=== PATIENT | male | born 1955 | race Asian ===

== ENCOUNTER 2017-08-18 21:23 | Emergency (ER) | payer OTHER ==
[2017-08-18 21:46] VITALS: BMI 26.3
--- NOTE | 2017-08-19 00:21 | PDOC ---
History of Present Illness - General History Source: Old Records Exam Limitations: Language Barrier - History of Present Illness Initial Comments: 08/19/17 00:35 The patient 61-year-old Pashto-speaking patient living [place] the [place], with a significant past medical history of HTN and diabetes, who presents to the ED with lower back pain that began at 5 PM today. Pts back pain is vascular until proven otherwise. Pt will get a Abdominal/Pelvis CT. <Janiya Kirk - Last Filed: 08/19/17 06:44> <Suman Shipman - Last Filed: 08/20/17 09:44> - General Chief Complaint: Pain Stated Complaint: BACK PAIN Past History <Janiya Kirk - Last Filed: 08/19/17 06:44> - Past Medical History CVA: Yes (Left sided weakness) Diabetes: Yes HTN: Yes Hypercholesterolemia: Yes - Immunization History Immunization Up to Date: Yes - Suicide/Smoking/Psychosocial Hx Smoking History: Never smoked Have you smoked in the past 12 months: No Information on smoking cessation initiated: No Hx Alcohol Use: No Drug/Substance Use Hx: No Substance Use Type: None <Suman Shipman - Last Filed: 08/20/17 09:44> - Past Medical History Allergies/Adverse Reactions: Allergies Allergy/AdvReac Type Severity Reaction Status Date / Time No Known Allergies Allergy Verified 08/18/17 21:43 Home Medications: Ambulatory Orders Atorvastatin Ca [Lipitor] 10 mg PO HS 06/11/16 Clopidogrel Bisulfate [Plavix -] 75 mg PO DAILY 06/11/16 Gabapentin [Neurontin -] 100 mg PO DAILY 06/11/16 Omeprazole 20 mg PO DAILY 06/11/16 Aspirin [ASA -] 81 mg PO DAILY 07/14/16 Folic Acid 1 mg PO DAILY 07/14/16 Glipizide Xl [Glucotrol Xl -] 10 mg PO BID 07/14/16 Metformin HCl [Glucophage] 1,000 mg PO BID 07/14/16 Acetaminophen [Tylenol] 650 mg PO PRN 08/02/16 Canagliflozin [Invokana] 300 mg PO DAILY 08/02/16 Loratadine [Claritin] 10 mg PO DAILY #20 tablet 08/02/16 Pioglitazone HCl [Actos] 30 mg PO DAILY 08/02/16 Ramipril 5 mg PO DAILY 08/02/16 Acetaminophen [Tylenol] 650 mg PO Q4H PRN #20 tablet 08/19/17 Review of Systems - Review of Systems Comments:: 08/19/17 00:35 GENERAL/CONSTITUTIONAL: No fever or chills. No weakness. HEAD, EYES, EARS, NOSE AND THROAT: No change in vision. No ear pain or discharge. No sore throat. CARDIOVASCULAR: No chest pain or shortness of breath. RESPIRATORY: No cough, wheezing, or hemoptysis. GASTROINTESTINAL: No nausea, vomiting, diarrhea or constipation. GENITOURINARY: No dysuria, frequency, or change in urination. MUSCULOSKELETAL: (+)Lower back pain. No joint swelling or pain. No neck pain. SKIN: No rash NEUROLOGIC: No headache, vertigo, loss of consciousness, or change in strength/ sensation. ENDOCRINE: No increased thirst. No abnormal weight change. HEMATOLOGIC/LYMPHATIC: No anemia, easy bleeding, or history of blood clots. ALLERGIC/IMMUNOLOGIC: No hives or skin allergy. <Janiya Kirk - Last Filed: 08/19/17 06:44> *Physical Exam - Vital Signs Last Vital Signs Temp Pulse Resp BP Pulse Ox 98.1 F 74 18 118/70 97 08/18/17 21:43 08/18/17 21:43 08/18/17 21:43 08/18/17 21:43 08/18/17 21:43 - Physical Exam Comments: 08/19/17 00:36 GENERAL: Awake, alert, and fully oriented, in no acute distress HEAD: No signs of trauma EYES: PERRLA, EOMI, sclera anicteric, conjunctiva clear ENT: Auricles normal inspection, hearing grossly normal, nares patent, oropharynx clear without exudates. Moist mucosa NECK: Normal ROM, supple, no lymphadenopathy, JVD, or masses LUNGS: Breath sounds equal, clear to auscultation bilaterally. No wheezes, and no crackles HEART: Regular rate and rhythm, normal S1 and S2, no murmurs, rubs or gallops ABDOMEN: Soft, nontender, normoactive bowel sounds. No guarding, no rebound. No masses EXTREMITIES: Normal range of motion, no edema. No clubbing or cyanosis. No cords, erythema, or tenderness NEUROLOGICAL: Cranial nerves II through XII grossly intact. SKIN: Warm, Dry, normal turgor, no rashes or lesions noted <Janiya Kirk - Last Filed: 08/19/17 06:44> - Vital Signs Last Vital Signs Temp Pulse Resp BP Pulse Ox 98.1 F 74 18 118/70 97 08/18/17 21:43 08/18/17 21:43 08/18/17 21:43 08/18/17 21:43 08/18/17 21:43 <Suman Shipman - Last Filed: 08/20/17 09:44> ED Treatment Course - LABORATORY CBC & Chemistry Diagram: 08/19/17 00:59 08/19/17 00:59 - RADIOLOGY Radiology Studies Ordered: 08/19/17 06:06 Abdomen/Pelvis CT was reviewed by Dr. Shipman and over-read by Radiology. Impression: Lung bases are clear mild dependent atelectasis. The visualized cardiac chambers are normal size and configuration. Normal liver, gallbladder, pancreas, spleen, adrenal glands and kidneys. The stomach and abdominal small and large bowel are normal. There is no aortic dissection or aneurysm. Normal single bilateral renal arteries. Patient celiac axis and SMA. There is no significant retroperitoneal lymphadenopathy. The pelvic small and large bowel are normal. The appendix is normal. The urinary bladder is normal. The prostate gland is mildly enlarged. No pelvic free fluid is identified. There is no significant pelvic lymphadenopathy. IMPRESSION: No acute pathology. Mild prostate enlargement. <Janiya Kirk - Last Filed: 08/19/17 06:44> - LABORATORY CBC & Chemistry Diagram: 08/19/17 00:59 08/19/17 00:59 <Suman Shipman - Last Filed: 08/20/17 09:44> Medical Decision Making - Medical Decision Making 08/19/17 06:44 Pt still needs urine. He will be discharged. <Janiya Kirk - Last Filed: 08/19/17 06:44> *DC/Admit/Observation/Transfer - Attestations Scribe Attestion: 08/19/17 00:36 Documentation prepared by Janiya Kirk, acting as medical physiologist for Suman Shipman MD. <Janiya Kirk - Last Filed: 08/19/17 06:44> - Attestations Physician Attestion: 08/19/17 00:21 I, Dr. Suman Shipman, attest that this document has been prepared under my direction and personally reviewed by me in its entirety. I further attest, that it accurately reflects all work, treatment, procedures and medical decision -making performed by me. <Suman Shipman - Last Filed: 08/20/17 09:44> Diagnosis at time of Disposition: Back pain Qualifiers: Back pain location: back pain in other location Chronicity: unspecified Qualified Code(s): M54.89 - Other dorsalgia - Discharge Dispostion Disposition: HOME Condition at time of disposition: Improved - Prescriptions Prescriptions: Acetaminophen [Tylenol] 650 mg PO Q4H PRN #20 tablet PRN Reason: Pain - Referrals Referrals: STAFF,NOT ON [Primary Care Provider] - - Patient Instructions Printed Discharge Instructions: Back Pain (Alternative Therapy), DI for Low Back Pain Additional Instructions: Please follow up with your doctor. Call back for your CT spine results at [phone] option 1 or [phone] Print Language: Pashto
[2017-08-19] MEDS ORDERED: ONDANSETRON 4 MG/2 ML VIAL IVPUSH ONE (00:30)
[2017-08-19] MEDS ORDERED: morphine CARPU-JECT 4 MG/1 ML DISP.SYRIN IVPUSH ONE (00:30)
[2017-08-19] MEDS ORDERED: morphine CARPU-JECT 2 MG/1 ML DISP.SYRIN ONE (00:53)
[2017-08-19] MEDS ORDERED: ONDANSETRON 4 MG/2 ML VIAL ONE (00:53)
[2017-08-19 01:15] LABS: BASOPHIL 0.8 % (0-2.0); EOSINOPHIL 2.9 % (0-4.5); MCH 29.5 pg (25.7-33.7); MCHC 33.7 g/dl (32.0-35.9); MEAN CELL VOLUME 87.5 fl (80-96); MEAN PLT VOLUME 8.2 fl (7.5-11.1); NEUTROPHILS 63.4 % (42.8-82.8); PLATELET COUNT 157 K/MM3 (134-434); RDW 13.2 % (11.9-15.9); WHITE BLOOD COUNT 5.2 K/mm3 (4.0-10.0)
[2017-08-19 01:29] LABS: INR 0.91 (0.82-1.09); PROTHROMBIN TIME (PATIENT) 10.3 SEC (9.98-11.88)
[2017-08-19 01:47] LABS: ALBUMIN 3.6 g/dl (3.4-5.0); ANION GAP 8 (8-16); BILIRUBIN,TOTAL 0.8 mg/dL (0.2-1.0); CALCIUM 8.3 mg/dL (8.5-10.1); CO2 26 mmol/L (21-32); CREATININE 0.8 mg/dL (0.7-1.3); GLUCOSE,RANDOM 217 mg/dL (74-106); SGOT/AST 15 U/L (15-37); SGPT/ALT 21 U/L (12-78); TOT PROT 6.8 g/dl (6.4-8.2)
[2017-08-19 01:48] LABS: ALK PHOS 23 U/L (45-117)
[2017-08-19 06:54] LABS: URINE APPEARANCE CLEAR; URINE BILIRUBIN NEGATIVE (NEGATIVE); URINE BLOOD NEGATIVE (NEGATIVE); URINE COLOR STRAW; URINE GLUCOSE (UA) 3+ (NEGATIVE); URINE KETONE NEGATIVE (NEGATIVE); URINE NITRITE NEGATIVE (NEGATIVE); URINE PROTEIN NEGATIVE (NEGATIVE); URINE UROBILINOGEN NEGATIVE mg/dL (0.2-1.0)
--- NOTE | 2017-08-19 09:07 | PDOC ---
*Physical Exam - Vital Signs Last Vital Signs Temp Pulse Resp BP Pulse Ox 98.8 F 78 18 120/72 100 08/19/17 07:55 08/19/17 07:55 08/19/17 07:55 08/19/17 07:55 08/19/17 07:55 ED Treatment Course - LABORATORY CBC & Chemistry Diagram: 08/19/17 00:59 08/19/17 00:59 - ADDITIONAL ORDERS Additional order review: Laboratory Results 08/19/17 08/19/17 08/19/17 05:55 00:59 00:59 PT with INR INR Sodium 137 Potassium 3.9 Chloride 103 Carbon Dioxide 26 Anion Gap 8 BUN 18 D Creatinine 0.8 D Creat Clearance w eGFR > 60 Random Glucose 217 H D Calcium 8.3 L Total Bilirubin 0.8 D AST 15 D ALT 21 Alkaline Phosphatase 23 L Total Protein 6.8 Albumin 3.6 Urine Color Straw Urine Appearance Clear Urine pH 6.0 Urine Protein Negative Urine Glucose (UA) 3+ H Urine Ketones Negative Urine Blood Negative Urine Nitrite Negative Urine Bilirubin Negative Urine Urobilinogen Negative Blood Type A POSITIVE Antibody Screen Negative 08/19/17 00:59 PT with INR 10.30 INR 0.91 Sodium Potassium Chloride Carbon Dioxide Anion Gap BUN Creatinine Creat Clearance w eGFR Random Glucose Calcium Total Bilirubin AST ALT Alkaline Phosphatase Total Protein Albumin Urine Color Urine Appearance Urine pH Urine Protein Urine Glucose (UA) Urine Ketones Urine Blood Urine Nitrite Urine Bilirubin Urine Urobilinogen Blood Type Antibody Screen 08/19/17 00:59 RBC 5.01 MCV 87.5 MCHC 33.7 RDW 13.2 MPV 8.2 Neutrophils % 63.4 Lymphocytes % 24.8 D Monocytes % 8.1 Eosinophils % 2.9 Basophils % 0.8 - Medications Given in the ED: ED Medications Discontinued Medications Generic Name Dose Route Start Last Admin Trade Name Freq PRN Reason Stop Dose Admin Morphine Sulfate 4 mg 08/19/17 00:30 08/19/17 01:04 Morphine Injection - IVPUSH 08/19/17 00:31 4 mg ONCE ONE Administration Ondansetron HCl 4 mg 08/19/17 00:30 08/19/17 01:05 Zofran Injection IVPUSH 08/19/17 00:31 4 mg ONCE ONE Administration Medical Decision Making - Medical Decision Making 08/19/17 09:02 Sign-out received from outgoing Emergency Physician Dr. Shipman Pt interviewed and examined Ancillary studies reviewed Case discussed in detail with oncoming Emergency Physician including history, physical exam and ancillary studies. CT abdomen and pelvis demonstrates no acute findings. CBC, BMP 08/19/17 00:59 08/19/17 00:59 CMP Sodium 137 mmol/L (136-145) 08/19/17 00:59 Potassium 3.9 mmol/L (3.5-5.1) 08/19/17 00:59 Chloride 103 mmol/L (98-107) 08/19/17 00:59 Carbon Dioxide 26 mmol/L (21-32) 08/19/17 00:59 Anion Gap 8 (8-16) 08/19/17 00:59 BUN 18 mg/dL (7-18) D 08/19/17 00:59 Creatinine 0.8 mg/dL (0.7-1.3) D 08/19/17 00:59 Creat Clearance w eGFR > 60 (>60) 08/19/17 00:59 Random Glucose 217 mg/dL (74-106) H D 08/19/17 00:59 Calcium 8.3 mg/dL (8.5-10.1) L 08/19/17 00:59 Total Bilirubin 0.8 mg/dL (0.2-1.0) D 08/19/17 00:59 AST 15 U/L (15-37) D 08/19/17 00:59 ALT 21 U/L (12-78) 08/19/17 00:59 Alkaline Phosphatase 23 U/L (45-117) L 08/19/17 00:59 Total Protein 6.8 g/dl (6.4-8.2) 08/19/17 00:59 Albumin 3.6 g/dl (3.4-5.0) 08/19/17 00:59 Urine Test Results Urine Color Straw 08/19/17 05:55 Urine Appearance Clear 08/19/17 05:55 Urine pH 6.0 (5.0-8.0) 08/19/17 05:55 Urine Protein Negative (NEGATIVE) 08/19/17 05:55 Urine Glucose (UA) 3+ (NEGATIVE) H 08/19/17 05:55 Urine Ketones Negative (NEGATIVE) 08/19/17 05:55 Urine Blood Negative (NEGATIVE) 08/19/17 05:55 Urine Nitrite Negative (NEGATIVE) 08/19/17 05:55 Urine Bilirubin Negative (NEGATIVE) 08/19/17 05:55 The patient reports to me that the back pain has resolved significantly. The CT scan demonstrates no acute findings. The CT was obtained overnight, but the reconstruction of the CT spine still is pending read. However, the patient and patient's family insists on going home as they have been here for > 11 hours. I stated that they can call back for the CT results or I will call them if there are any abnormal CT spine results. The patient also gave me his son's phone number, who is also a doctor. Dr. dooley [phone]. The patient is ambulatory and will follow up with his doctors. I discussed the physical exam findings, ancillary test results and final diagnoses with the patient. I answered all of the patient's questions. The patient was satisfied with the care received and felt comfortable with the discharge plan and treatment plan. The patient will call their primary care physician within 24 hours to arrange follow-up and will return to the Emergency Department with any new, persistant or worsening symptoms. *DC/Admit/Observation/Transfer Diagnosis at time of Disposition: Back pain Qualifiers: Back pain location: back pain in other location Chronicity: unspecified Qualified Code(s): M54.89 - Other dorsalgia - Discharge Dispostion Disposition: HOME Condition at time of disposition: Improved Admit: No - Prescriptions Prescriptions: Acetaminophen [Tylenol] 650 mg PO Q4H PRN #20 tablet PRN Reason: Pain - Referrals Referrals: STAFF,NOT ON [Primary Care Provider] - - Patient Instructions Printed Discharge Instructions: DI for Low Back Pain, Back Pain (Alternative Therapy) Additional Instructions: Please follow up with your doctor. Call back for your CT spine results at [phone] option 1 or [phone] Print Language: Uzbek - Post Discharge Activity
[2017-08-19 09:40] VITALS: BP 125/72; PULSE 69; TEMP 98.2
[2017-08-19 12:13] LABS: URINE LEUK ESTERASE Negative (NEGATIVE)
== END 2017-08-19 09:40 | disposition home or self-care (01) ==
LOC: JER 21:23
PROC: 3E033NZ Introduction of Analgesics, Hypnotics, Sedatives into Peripheral Vein, Percutaneous Approach (ICD-10-PCS; principal; 2017-08-18)
PROC: 3E033GC Introduction of Other Therapeutic Substance into Peripheral Vein, Percutaneous Approach (ICD-10-PCS; 2017-08-18)
DX: M54.5 Low back pain (principal); I10 Essential (primary) hypertension; E11.9 Type 2 diabetes mellitus without complications; Z79.84 Long term (current) use of oral hypoglycemic drugs; E78.00 Pure hypercholesterolemia, unspecified; I69.854 Hemiplegia and hemiparesis following other cerebrovascular disease affecting left non-dominant side
CPT/HCPCS: 36415; 72131-TC; 74174-TC; 80053; 81003; 85025; 85610; 86850; 86900; 86901; 99283-25

== ENCOUNTER 2018-10-10 08:13 | Emergency (ER) | payer OTHER ==
[2018-10-10 08:30] VITALS: TEMP 98; BMI 26.3
[2018-10-10] MEDS ORDERED: LACTATED RINGERS SOLUTION 1,000 ML IV STA (08:38)
--- NOTE | 2018-10-10 08:38 | PDOC ---
History of Present Illness - General History Source: Patient, Family, Herpetologist Used Exam Limitations: No Limitations - History of Present Illness Initial Comments: 10/10/18 10:50 Mr. Goetz is a 63-year-old Macedonian speaking male with a past medical history significant for HTN, HLD, IDDM, and CVA (with residual left-sided weakness) presents to the emergency department via EMS with throat and abdominal pain. The history was obtained using an [employer] radio communications mechanician phone #[phone]. The patient reports he was at [employer] when he smelled the odor of paint that traveled down the throat to the abdomen, following the episode, the patient developed pain to the throat and the mid-abdomen/umbilical region. The patient reports the abdominal pain tight and twisting in quality, with a 7/10 severity, denies taking any medication to alleviate the pain or eating any food that precipitated the pain. The patient reports associated symptoms of nausea, shortness of breath, mild chest pain, light subjective fever, and rhinorrhea. The patient reports a similar incident a day prior when he was sitting in the car when he started the smell pain, during the episode the patient reports having eye pain and a headache. The reports during both incidents, the was unable to detect the similar smell. Denies vomiting, diarrhea, constipation, changes to bowel habits, worsening urinary symptoms. Denies new weakness, numbness, tingling. Denies sick contact, recent travel or illness. Denies congestions. Allergies: NKDA Social history: No past or present use of tobacco, alcohol or recreational drugs. Surgical history: None reported PCP: Nabeel Mosquera MD <Destiny Shane - Last Filed: 10/10/18 10:50> - General History Source: Patient, Family Exam Limitations: No Limitations <Denae Brantley - Last Filed: 10/10/18 13:23> - General Chief Complaint: Pain Stated Complaint: ABD PAIN Time Seen by Provider: 10/10/18 08:32 Past History <Destiny Shane - Last Filed: 10/10/18 10:50> - Past Medical History CVA: Yes (Left sided weakness) COPD: No Diabetes: Yes HTN: Yes Hypercholesterolemia: Yes - Immunization History Immunization Up to Date: Yes - Suicide/Smoking/Psychosocial Hx Smoking History: Never smoked Have you smoked in the past 12 months: No Information on smoking cessation initiated: No Hx Alcohol Use: No Drug/Substance Use Hx: No Substance Use Type: None <Denae Brantley - Last Filed: 10/10/18 13:23> - Past Medical History Allergies/Adverse Reactions: Allergies Allergy/AdvReac Type Severity Reaction Status Date / Time No Known Allergies Allergy Verified 06/21/18 06:38 Home Medications: Ambulatory Orders Atorvastatin Ca [Lipitor] 10 mg PO HS 06/11/16 Clopidogrel Bisulfate [Plavix -] 75 mg PO DAILY 06/11/16 Gabapentin [Neurontin -] 100 mg PO DAILY 06/11/16 Aspirin [ASA -] 81 mg PO DAILY 07/14/16 Folic Acid 1 mg PO DAILY 07/14/16 Glipizide Xl [Glucotrol Xl -] 10 mg PO BID 07/14/16 Metformin HCl [Glucophage] 1,000 mg PO BID 07/14/16 Acetaminophen [Tylenol] 650 mg PO PRN 08/02/16 Pioglitazone HCl [Actos] 30 mg PO DAILY 08/02/16 Ramipril 5 mg PO DAILY 08/02/16 Empagliflozin [Jardiance] 25 mg PO DAILY 10/10/18 Magnesium Oxide [Mag-Ox -] 400 mg PO DAILY 10/10/18 Sitagliptin Phosphate [Januvia] 100 mg PO DAILY 10/10/18 Review of Systems - Review of Systems Able to Perform ROS?: Yes Comments:: 10/10/18 10:51 GENERAL/CONSTITUTIONAL: +Light sub-fever. No chills. No weakness. no sweats. HEAD, EYES, EARS, NOSE AND THROAT: +Throat pain, runny nose. +Eye pain a day prior, since resolved. No change in vision or hearing. No ear pain or discharge. No mouth pain. No difficulty swallowing. No congestion. CARDIOVASCULAR: +Mild chest pain. No palpitations, syncope or edema. RESPIRATORY: +SOB. No cough, wheezing, or hemoptysis. GASTROINTESTINAL +Umbilical abdominal pain w/ nausea. No vomiting. No diarrhea or constipation. No bloody stools. GENITOURINARY: No hematuria, dysuria, frequency, urgency or other changes. MUSCULOSKELETAL: No joint or muscle swelling or pain. No neck or back pain. SKIN: No rash or changes in skin color or lesions. NEUROLOGIC: +Headache a day prior, since resolved. No vertigo, loss of consciousness, or change in strength/sensation. No gait instability. HEMATOLOGIC/LYMPHATIC: No anemia, easy bruising/bleeding, or history of blood clots. ALLERGIC/IMMUNOLOGIC: No allergies All other systems reviewed and negative, or as documented in HPI. <Destiny Shane - Last Filed: 10/10/18 10:50> *Physical Exam - Vital Signs Last Vital Signs Temp Pulse Resp BP Pulse Ox 98.0 F 81 18 141/82 97 10/10/18 08:26 10/10/18 08:26 10/10/18 08:26 10/10/18 08:26 10/10/18 08:26 - Physical Exam Comments: 10/10/18 10:51 General: awake and alert, NAD. HEENT: NCAT, PERRL, EOMI, clear conjunctiva, anicteric, moist mucus membranes, clear oropharynx, no oral lesions.. No tonsillar hypertrophy Neck: neck supple, FROM Resp: CTAB, normal and even respirations, no respiratory distress CVS: RRR, no murmurs, 2+ peripheral pulses throughout, no peripheral edema Abdomen: soft, nondistended, +periumbilical TTP. no rebound or guarding. Back: nontender, normal inspection and ROM. no CVAT MSK: no edema, DELGADO x4, ROM intact. No clubbing or cyanosis. normal bulk and tone. Extremities: no calf tenderness Neuro: alert, oriented appropriately; no focal neurologic deficits Skin: warm and well perfused, cap refill <2 sec, normal color <Destiny Shane - Last Filed: 10/10/18 10:50> - Vital Signs Last Vital Signs Temp Pulse Resp BP Pulse Ox 98.0 F 81 18 141/82 97 10/10/18 08:26 10/10/18 08:26 10/10/18 08:26 10/10/18 08:26 10/10/18 08:26 <Denae Brantley - Last Filed: 10/10/18 13:23> Moderate Sedation - Procedure Monitoring Vital Signs: Procedure Monitoring Vital Signs Temperature 98.0 F 10/10/18 08:26 Pulse Rate 81 10/10/18 08:26 Respiratory Rate 18 10/10/18 08:26 Blood Pressure 141/82 10/10/18 08:26 O2 Sat by Pulse Oximetry (%) 97 10/10/18 08:26 <Destiny Shane - Last Filed: 10/10/18 10:50> - Procedure Monitoring Vital Signs: Procedure Monitoring Vital Signs Temperature 98.0 F 10/10/18 08:26 Pulse Rate 81 10/10/18 08:26 Respiratory Rate 18 10/10/18 08:26 Blood Pressure 141/82 10/10/18 08:26 O2 Sat by Pulse Oximetry (%) 97 10/10/18 08:26 <Denae Brantleythelma - Last Filed: 10/10/18 13:23> ED Treatment Course - LABORATORY CBC & Chemistry Diagram: 10/10/18 08:55 10/10/18 08:55 - ADDITIONAL ORDERS Additional order review: Laboratory Results 10/10/18 10/10/18 10:10 08:55 Sodium 137 Potassium 4.1 Chloride 101 Carbon Dioxide 24 Anion Gap 11 BUN 11 Creatinine 1.0 Creat Clearance w eGFR > 60 Random Glucose 343 H* Calcium 8.3 L Total Bilirubin 0.5 AST 16 ALT 19 Alkaline Phosphatase 28 L Troponin I < 0.02 Total Protein 6.6 Albumin 3.4 Lipase 152 Urine Color Straw Urine Appearance Clear Urine pH 7.0 Ur Specific [place] 1.008 L Urine Protein Negative Urine Glucose (UA) 3+ H Urine Ketones Negative Urine Blood Negative Urine Nitrite Negative Urine Bilirubin Negative Urine Urobilinogen Negative Ur Leukocyte Esterase Negative 10/10/18 08:55 RBC 4.96 MCV 86.5 MCHC 32.7 RDW 13.2 MPV 8.2 Neutrophils % 65.4 Lymphocytes % 23.5 Monocytes % 7.0 Eosinophils % 3.3 Basophils % 0.8 - Medications Given in the ED: ED Medications Discontinued Medications Generic Name Dose Route Start Last Admin Trade Name Freq PRN Reason Stop Dose Admin Acetaminophen 650 mg 10/10/18 09:57 10/10/18 10:24 Tylenol - PO 10/10/18 09:58 650 mg ONCE ONE Administration Lactated Ringer's 1,000 mls @ 1,000 mls/hr 10/10/18 08:38 10/10/18 08:57 Lactated Ringers Solution IV 10/10/18 09:37 1,000 mls/hr ONCE STA Administration <Destiny Shane - Last Filed: 10/10/18 10:50> - LABORATORY CBC & Chemistry Diagram: 10/10/18 08:55 10/10/18 08:55 <Denae Brantley - Last Filed: 10/10/18 13:23> Medical Decision Making - Medical Decision Making 10/10/18 10:51 Herpetologist # for Macedonian, #[id number] <Destiny Shane - Last Filed: 10/10/18 10:50> - Medical Decision Making 10/10/18 10:25 See HPI for details Vital signs reviewed, wnl. Prior notes reviewed, including admissions, discharges and consultations. laboratory results and imaging reviewed, basic labs and lytes wnl, notable for elevated glucose 343, also known diabetic. normal LFTs and lipase Cardiac panel_neg trop EKG normal sinus rhythm, no interval abnormalities, narrow QRS, ST and T wave segments and morphology normal. Nonspecific T wave abnormalities CT head to r/o mass vs CVA CT head neg for acute pathology, old CVA noted, volume loss; CT a/p unremarkable , large prostate but otherwise wnl. strep and influenza test neg ED course: given fluids and tylenol for analgesia. abdomen soft, mild periumbilical tenderness. feels improved and eager for discharge, tolerated PO intake w/o difficulty, hydrated and nontoxic appearing. repeat fingerstick also normalized with fluids. does not appear dehydrated or in dka. Dispo: I discussed the physical exam findings, ancillary test results and final diagnoses with the patient. I answered all of the patient's questions. The patient was satisfied with the care received and felt comfortable with the discharge plan and treatment plan. The patient will return to the Emergency Department with any new, persistent or worsening symptoms. 10/10/18 13:18 10/10/18 13:19 10/10/18 13:19 10/10/18 13:22 10/10/18 13:23 <Denae Brantley - Last Filed: 10/10/18 13:23> *DC/Admit/Observation/Transfer - Attestations Scribe Attestion: 10/10/18 10:52 Documentation prepared by Destiny Shane, acting as medical cash poster for Denae Brantley MD. <Destiny Shane - Last Filed: 10/10/18 10:50> - Discharge Dispostion Decision to Admit order: No - Attestations Physician Attestion: 10/10/18 10:25 I, Denae Brantley MD, attest that this document has been prepared under my direction and personally reviewed by me in its entirety. I further attest, that it accurately reflects all work, treatment, procedures and medical decision -making performed by me. <Denae Brantley - Last Filed: 10/10/18 13:23> Diagnosis at time of Disposition: Abdominal pain, Throat pain - Discharge Dispostion Disposition: HOME Condition at time of disposition: Improved - Referrals Referrals: Nabeel Lozoya MD [Primary Care Provider] - - Patient Instructions Printed Discharge Instructions: DI for Abdominal Pain-Adult, DI for Viral Pharyngitis Additional Instructions: your blood tests were negative for abnormalities flu test negative strep negative CT scans with old stroke, no abdominal pathology follow up with your primary doctor for management stay well hydrated, rest well and return if worsening symptoms like inability to tolerate oral intake, dehydration, fever, worse pain, bloody stools or vomiting or other concerning findings. information has been provided and translated in Macedonian - Post Discharge Activity
[2018-10-10 09:22] LABS: BASO % 0.8 % (0-2.0); EOS % 3.3 % (0-4.5); HEMATOCRIT 42.9 % (35.4-49); LYMPH % 23.5 % (8-40); MCH 28.3 pg (25.7-33.7); MCHC 32.7 g/dl (32.0-35.9); MEAN CELL VOLUME 86.5 fl (80-96); MEAN PLT VOLUME 8.2 fl (7.5-11.1); NEUT % 65.4 % (42.8-82.8); PLATELET COUNT 165 K/MM3 (134-434); RBC 4.96 M/mm3 (4.00-5.60); RDW 13.2 % (11.9-15.9); WHITE BLOOD COUNT 4.5 K/mm3 (4.0-10.0)
[2018-10-10] MEDS ORDERED: ACETAMINOPHEN 325 MG TABLET (FP) PO ONE (09:57)
[2018-10-10 10:00] LABS: ALBUMIN 3.4 g/dl (3.4-5.0); ALK PHOS 28 U/L (45-117); ANION GAP 11 MMOL/L (8-16); BILIRUBIN,TOTAL 0.5 mg/dL (0.2-1); BLOOD UREA NITROGEN 11 mg/dL (7-18); CALCIUM 8.3 mg/dL (8.5-10.1); CHLORIDE 101 mmol/L (98-107); CO2 24 mmol/L (21-32); LIPASE 152 U/L (73-393); POTASSIUM 4.1 mmol/L (3.5-5.1); SGOT/AST 16 U/L (15-37); SGPT/ALT 19 U/L (13-61); SODIUM 137 mmol/L (136-145); TOT PROT 6.6 g/dl (6.4-8.2)
[2018-10-10] MEDS ORDERED: ACETAMINOPHEN 325 MG TABLET (FP) ONE (10:09)
[2018-10-10 10:19] LABS: GLUCOSE,RANDOM 343 mg/dL (74-106)
[2018-10-10 10:25] LABS: URINE APPEARANCE CLEAR; URINE BILIRUBIN NEGATIVE (<2.0 mg/dL); URINE COLOR STRAW; URINE GLUCOSE (UA) 3+ (NEGATIVE); URINE KETONE NEGATIVE (NEGATIVE); URINE LEUK ESTERASE NEGATIVE (NEGATIVE); URINE NITRITE NEGATIVE (NEGATIVE); URINE PROTEIN NEGATIVE (NEGATIVE); URINE UROBILINOGEN NEGATIVE mg/dL (0.2-1.0)
[2018-10-10 13:28] VITALS: BP 121/66; PULSE 68
--- NOTE | 2018-10-10 15:47 | EKG ---
Test Reason : Blood Pressure : / mmHG Vent. Rate : 067 BPM Atrial Rate : 067 BPM P-R Int : 160 ms QRS Dur : 094 ms QT Int : 420 ms P-R-T Axes : 046 001 031 degrees QTc Int : 443 ms NORMAL SINUS RHYTHM NORMAL ECG WHEN COMPARED WITH ECG OF 11-JUN-2016 07:53, NO SIGNIFICANT CHANGE WAS FOUND Confirmed by CORNELIUS AMAYA MD ([id number]) on 10/10/2018 3:46:49 PM Referred By: Confirmed By:CORNELIUS AMAYA MD
== END 2018-10-10 13:34 | disposition home or self-care (01) ==
LOC: JER 08:13
PROC: 3E0337Z Introduction of Electrolytic and Water Balance Substance into Peripheral Vein, Percutaneous Approach (ICD-10-PCS; principal; 2018-10-10)
DX: R07.0 Pain in throat (principal); I10 Essential (primary) hypertension; E11.9 Type 2 diabetes mellitus without complications; Z79.84 Long term (current) use of oral hypoglycemic drugs; E78.00 Pure hypercholesterolemia, unspecified; I69.854 Hemiplegia and hemiparesis following other cerebrovascular disease affecting left non-dominant side
CPT/HCPCS: 36415; 70450-TC; 74177-TC; 80053; 81003; 82962; 83690; 84484; 85025; 87070; 87077; 87804; 87880; 93005; 93010; 96360; 99284-25

== ENCOUNTER 2019-01-31 17:50 | Emergency (ER) | payer OTHER ==
--- NOTE | 2019-01-31 17:56 | PDOC ---
History of Present Illness - General Stated Complaint: ABDOMINAL PAIN Time Seen by Provider: 01/31/19 17:56 - History of Present Illness Initial Comments: 01/31/19 17:56 Mr. Goetz is a 63 yo male w/ pmh of HTN, HLD, IDDM, CVA (residual left-sided weakness) who presents for evaluation of 2-3 hour history of midline abdominal pain. Patient reports he was previously in his normal state of health until 2 hours before presentation when he began to experience the pain. He additionally had a 1 time episode of vomiting during which he vomited up all food he had eaten. Denies any other symptoms - last BM this morning was reportedly normal. Patient denies other symptoms other than pain at this time. The patient denies chest pain, shortness of breath, headache and dizziness. Denies fever, chills, diarrhea and constipation. Denies dysuria, frequency, urgency and hematuria. Allergies: NKDA Surgical history: None reported PCP: Nabeel Mosquera Past History - Past Medical History Allergies/Adverse Reactions: Allergies Allergy/AdvReac Type Severity Reaction Status Date / Time No Known Allergies Allergy Verified 06/21/18 06:38 Home Medications: Ambulatory Orders Atorvastatin Ca [Lipitor] 10 mg PO HS 06/11/16 Clopidogrel Bisulfate [Plavix -] 75 mg PO DAILY 06/11/16 Gabapentin [Neurontin -] 100 mg PO DAILY 06/11/16 Aspirin [ASA -] 81 mg PO DAILY 07/14/16 Folic Acid 1 mg PO DAILY 07/14/16 Glipizide Xl [Glucotrol Xl -] 10 mg PO BID 07/14/16 Metformin HCl [Glucophage] 1,000 mg PO BID 07/14/16 Acetaminophen [Tylenol] 650 mg PO PRN 08/02/16 Pioglitazone HCl [Actos] 30 mg PO DAILY 08/02/16 Ramipril 5 mg PO DAILY 08/02/16 Empagliflozin [Jardiance] 25 mg PO DAILY 10/10/18 Magnesium Oxide [Mag-Ox -] 400 mg PO DAILY 10/10/18 Sitagliptin Phosphate [Januvia] 100 mg PO DAILY 10/10/18 CVA: Yes (Left sided weakness) COPD: No Diabetes: Yes HTN: Yes Hypercholesterolemia: Yes - Immunization History Immunization Up to Date: Yes - Suicide/Smoking/Psychosocial Hx Smoking History: Never smoked Have you smoked in the past 12 months: No Hx Alcohol Use: No Drug/Substance Use Hx: No Substance Use Type: None Review of Systems - Review of Systems Comments:: 01/31/19 17:56 GENERAL/CONSTITUTIONAL: No fever or chills. No weakness. HEAD, EYES, EARS, NOSE AND THROAT: No change in vision. No ear pain or discharge. No sore throat. CARDIOVASCULAR: No chest pain or shortness of breath RESPIRATORY: No cough, wheezing, or hemoptysis. GASTROINTESTINAL: +N/V/abdominal pain as described. No diarrhea or constipation. GENITOURINARY: No dysuria, frequency, or change in urination. MUSCULOSKELETAL: No joint or muscle swelling or pain. No neck or back pain. SKIN: No rash NEUROLOGIC: No headache, vertigo, loss of consciousness, or change in strength/ sensation. ENDOCRINE: No increased thirst. No abnormal weight change HEMATOLOGIC/LYMPHATIC: No anemia, easy bleeding, or history of blood clots. ALLERGIC/IMMUNOLOGIC: No hives or skin allergy. *Physical Exam - Physical Exam Comments: 01/31/19 17:56 GENERAL: Awake, alert, and fully oriented, in no acute distress HEAD: No signs of trauma, normocephalic, atraumatic EYES: PERRLA, EOMI, sclera anicteric, conjunctiva clear ENT: Auricles normal inspection, hearing grossly normal, nares patent, oropharynx clear without exudates. Moist mucosa NECK: Normal ROM, supple, no lymphadenopathy, JVD, or masses LUNGS: No distress, speaks full sentences, clear to auscultation bilaterally HEART: Regular rate and rhythm, normal S1 and S2, no murmurs, rubs or gallops, peripheral pulses normal and equal bilaterally. ABDOMEN: +Impressive Abdominal TTP diffusely. Soft, normoactive bowel sounds. No guarding, no rebound. No masses EXTREMITIES: Normal inspection, Normal range of motion, no edema. No clubbing or cyanosis. NEUROLOGICAL: Cranial nerves II through XII grossly intact. Normal speech, normal gait, no focal sensorimotor deficits SKIN: Warm, Dry, normal turgor, no rashes or lesions noted. ED Treatment Course - LABORATORY CBC & Chemistry Diagram: 01/31/19 18:41 01/31/19 18:41 Medical Decision Making - Medical Decision Making 01/31/19 21:13 Mr. Goetz is a 63 yo male w/ pmh as described who presents for evaluation of symptoms concerning for dissection vs. ischemic colitis vs. gastritis. Patient evaluated with labs as below as patient extremely tender upon presentation raising concern that surgery may be required. Patient given IV tylenol, zofran, and morphine as well as fluids for symptomatic relief. Patient evaluated with Chest / abdomen CTA with no acute findings. Patient reporting symptoms completely resolved following this treatment and requesting water. Patient remains asymptomatic - currently pending PO challenge and vitals check. 01/31/19 22:46 Patient vitals normalized. Patient passed PO trial. Discharging patient to home with strict return precautions. Laboratory Results - last 24 hr 01/31/19 01/31/19 01/31/19 18:00 18:24 18:41 WBC 11.8 H RBC 5.19 Hgb 15.4 Hct 45.8 MCV 88.1 MCH 29.6 MCHC 33.6 RDW 13.8 Plt Count 154 MPV 8.2 Absolute Neuts (auto) 10.3 H Neutrophils % 87.9 H D Lymphocytes % 5.7 L D Monocytes % 4.6 Eosinophils % 0.6 D Basophils % 1.2 Nucleated RBC % 0 PT with INR INR PTT (Actin FS) VBG pH POC VBG pCO2 POC VBG pO2 VBG HCO3 VBG O2 Sat (Ronny) VBG Base Excess Sodium Potassium Chloride Carbon Dioxide Anion Gap BUN Creatinine Creat Clearance w eGFR POC Glucometer 175 Random Glucose Lactic Acid Calcium Magnesium Total Bilirubin AST ALT Alkaline Phosphatase Creatine Kinase Troponin I Total Protein Albumin Lipase Urine Color Urine Appearance Urine pH Ur Specific Drury Urine Protein Urine Glucose (UA) Urine Ketones Urine Blood Urine Nitrite Urine Bilirubin Urine Urobilinogen Ur Leukocyte Esterase Stool Occult Blood Acetone, Qual Anti-A Titer Cancelled Blood Type Cancelled Antibody Screen Cancelled 01/31/19 01/31/19 01/31/19 18:41 18:41 18:41 WBC RBC Hgb Hct MCV MCH MCHC RDW Plt Count MPV Absolute Neuts (auto) Neutrophils % Lymphocytes % Monocytes % Eosinophils % Basophils % Nucleated RBC % PT with INR 11.70 INR 0.99 PTT (Actin FS) 29.8 VBG pH 7.44 H POC VBG pCO2 38.3 L POC VBG pO2 64.4 H VBG HCO3 25.7 VBG O2 Sat (Ronny) 92.2 H VBG Base Excess 2.1 H Sodium 141 Potassium 3.3 L Chloride 104 Carbon Dioxide 25 Anion Gap 13 BUN 14 Creatinine 1.0 Creat Clearance w eGFR 74.99 POC Glucometer Random Glucose 146 H Lactic Acid Calcium 8.8 Magnesium 1.8 Total Bilirubin 0.7 AST 20 ALT 23 Alkaline Phosphatase 26 L Creatine Kinase 115 Troponin I < 0.02 Total Protein 7.4 Albumin 4.0 Lipase 169 Urine Color Urine Appearance Urine pH Ur Specific Drury Urine Protein Urine Glucose (UA) Urine Ketones Urine Blood Urine Nitrite Urine Bilirubin Urine Urobilinogen Ur Leukocyte Esterase Stool Occult Blood Acetone, Qual Anti-A Titer Blood Type Antibody Screen 01/31/19 01/31/19 01/31/19 18:41 18:41 18:43 WBC RBC Hgb Hct MCV MCH MCHC RDW Plt Count MPV Absolute Neuts (auto) Neutrophils % Lymphocytes % Monocytes % Eosinophils % Basophils % Nucleated RBC % PT with INR INR PTT (Actin FS) VBG pH POC VBG pCO2 POC VBG pO2 VBG HCO3 VBG O2 Sat (Ronny) VBG Base Excess Sodium Potassium Chloride Carbon Dioxide Anion Gap BUN Creatinine Creat Clearance w eGFR POC Glucometer Random Glucose Lactic Acid 1.2 Calcium Magnesium Total Bilirubin AST ALT Alkaline Phosphatase Creatine Kinase Troponin I Total Protein Albumin Lipase Urine Color Urine Appearance Urine pH Ur Specific Drury Urine Protein Urine Glucose (UA) Urine Ketones Urine Blood Urine Nitrite Urine Bilirubin Urine Urobilinogen Ur Leukocyte Esterase Stool Occult Blood Acetone, Qual Negative Anti-A Titer Blood Type A POSITIVE Antibody Screen Negative 01/31/19 01/31/19 18:53 20:26 WBC RBC Hgb Hct MCV MCH MCHC RDW Plt Count MPV Absolute Neuts (auto) Neutrophils % Lymphocytes % Monocytes % Eosinophils % Basophils % Nucleated RBC % PT with INR INR PTT (Actin FS) VBG pH POC VBG pCO2 POC VBG pO2 VBG HCO3 VBG O2 Sat (Ronny) VBG Base Excess Sodium Potassium Chloride Carbon Dioxide Anion Gap BUN Creatinine Creat Clearance w eGFR POC Glucometer Random Glucose Lactic Acid Calcium Magnesium Total Bilirubin AST ALT Alkaline Phosphatase Creatine Kinase Troponin I Total Protein Albumin Lipase Urine Color Yellow Urine Appearance Clear Urine pH 8.5 H D Ur Specific Drury 1.023 Urine Protein Negative Urine Glucose (UA) 3+ H Urine Ketones Negative Urine Blood Negative Urine Nitrite Negative Urine Bilirubin Negative Urine Urobilinogen 0.2 Ur Leukocyte Esterase Negative Stool Occult Blood Negative Acetone, Qual Anti-A Titer Blood Type Antibody Screen *DC/Admit/Observation/Transfer Diagnosis at time of Disposition: Abdominal pain Qualifiers: Abdominal location: unspecified location Qualified Code(s): R10.9 - Unspecified abdominal pain - Discharge Dispostion Disposition: HOME Decision to Admit order: Yes - Referrals Referrals: Nabeel Lozoya MD [Non Staff, Medical] - - Patient Instructions Printed Discharge Instructions: DI for Abdominal Pain-Adult Additional Instructions: You were evaluated today in the ER for your abdominal pain. We performed CT angiography scans of your chest and abdomen with no concerning findings. All laboratory evaluation was normal and your symptoms improved after we gave you pain medication. Please follow-up with your primary care provider tomorrow for further evaluation. Return to ER if any return of symptoms, fever, chills, or other concerning symptoms. Oneul ftvb-kkrnnbn-htsd bogbu tongjeung-e daehan pyeong-galeul bad-assseubnida. geomsa gyeolgwawa racwzblpk-uuea-i gaseum faizan bogbuui CT hyeolgwan joyeongsul geomsaleul suhaenghaessseubnida. modeun silheomsil pyeong-ganeun jeongsang- ieossgo jintongjeleul marshall hue jeungsang-i hojeondoeeossseubnida. naeil-ui pyeong -galeul wihae juchiuiwa husog jochileul chwihasibsio. silvia carrera ohan ttoneun gita jeungsang-e. - Post Discharge Activity
[2019-01-31 18:31] VITALS: BMI 25.8
[2019-01-31] MEDS ORDERED: ONDANSETRON 4 MG/2 ML VIAL IVPUSH ONE (18:42)
[2019-01-31] MEDS ORDERED: SODIUM CHLORIDE 0.9% 1000 ML INFUS.BAG IV ONE (18:42)
[2019-01-31] MEDS ORDERED: ONDANSETRON 4 MG/2 ML VIAL ONE (18:43)
[2019-01-31] MEDS ORDERED: morphine CARPU-JECT 4 MG/1 ML DISP.SYRIN IVPUSH ONE (18:43)
[2019-01-31] MEDS ORDERED: morphine SULFATE 4 MG/ML VIAL ONE (18:43)
[2019-01-31] MEDS ORDERED: LACTATED RINGERS SOLUTION 1000 ML INFUS.BAG IV ONE (18:46)
--- NOTE | 2019-01-31 18:50 | PDOC ---
Attending Attestation - HPI HPI: 01/31/19 19:09 The patient is a 63 YOM with a PMH of HTN, HLD, IDDM, and CVA (residual left- sided weakness) who presents to the ED with left lower quadrant abdominal pain today. Patient states the left lower quadrant pain radiates to the back and is associated with nausea. Patient reports similar symptoms 2-3 years ago, but cannot recall what the diagnose was then. Patient had a bowel movement today. The patient denies chest pain, shortness of breath, headache and dizziness. Denies fever, chills, vomit, diarrhea and constipation. Denies dysuria, frequency, urgency and hematuria. Allergies: NKA Past surgical history: None reported. Social history: No reported alcohol, drug or cigarette use. - Physicial Exam PE: 01/31/19 19:10 ADULT PHYSICAL EXAM Constitutional: Awake, alert, oriented. No acute distress. Eyes: PERRL. EOMI. Conjunctivae are not pale. ENT: Mucous membranes are moist and intact. Posterior pharynx without exudates or erythema. Uvula midline. Neck: Supple. Full ROM. No lymphadenopathy. Cardiovascular: Regular rate. Regular rhythm. S1, S2 regular. Distal pulses are 2+ and symmetric. Pulmonary/Chest: No evidence of respiratory distress. Clear to auscultation bilaterally No wheezing, rales or rhonchi. Abdominal: Soft and non-distended. (+) Acutely tender with rebound and guarding. Back: No CVA tenderness. Musculoskeletal: No edema. No cyanosis. No clubbing. Full range of motion in all extremities. Nocalf tenderness. Radial/pedal pulses are intact and 2+ bilaterally Skin: Skin is warm and dry. No petechiae. No purpura. Neurological: Alert and oriented to person, place, and time. Cranial nerves II -XII are grossly intact. Normal speech. Strength is grossly symmetric. No sensory deficits. Psychiatric: Good eye contact. Normal interaction, affect and behavior. <Halie Tatum - Last Filed: 01/31/19 19:09> - Resident Resident Name: Pablo Winter - ED Attending Attestation I have performed the following: I have examined & evaluated the patient, The case was reviewed & discussed with the resident, I agree w/resident's findings & plan, Exceptions are as noted - Medical Decision Making 01/31/19 18:50 I, Dr. Gerri Wiggins, DO, attest that this document has been prepared under my direction and personally reviewed by me in its entirety. I further attest, that it accurately reflects all work, treatment, procedures and medical decision -making performed by me. 01/31/19 19:14 a/p: 63yo romanian speaking gentleman with acute onset of abd pain today -had a normal bm this am -had 1 episode of nbnb vomiting today -acute LLQ and suprapubic pain -bedside ultrasound of aorta does not show aaa -no flank ecchymosis -concern for ischemic colitis, acute colitis, acute diverticulitis, perforated colon -will send labs, cultures, cta abd/pelvis with iv contrast -ivf hydration, zofran, morphine -also hx of DM, glu 175, will send acetone -npo 02/01/19 00:34 no acute findings on ct labs reviewed acetone negative urine without infection pt asking to eat and drink and tolerated PO no abd pain now- all pain resolved pt requesting to go home <Gerri Wiggins - Last Filed: 02/01/19 00:35> Heart Score/ECG Review - ECG Intrepretation Comment:: 01/31/19 19:18 sinus tach at 108, nl axis, nl interval, no acute st/t wave finding <Gerri Wiggins - Last Filed: 02/01/19 00:35>
[2019-01-31 18:55] LABS: BASO % 1.2 % (0-2.0); EOS % 0.6 % (0-4.5); HEMATOCRIT 45.8 % (35.4-49); HEMOGLOBIN 15.4 GM/dL (11.7-16.9); LYMPH % 5.7 % (8-40); MCH 29.6 pg (25.7-33.7); MCHC 33.6 g/dl (32.0-35.9); MEAN CELL VOLUME 88.1 fl (80-96); MEAN PLT VOLUME 8.2 fl (7.5-11.1); MONO % 4.6 % (3.8-10.2); NEUT % 87.9 % (42.8-82.8); PLATELET COUNT 154 K/MM3 (134-434); RBC 5.19 M/mm3 (4.00-5.60); RDW 13.8 % (11.9-15.9); VENOUS PC02 38.3 mmHg (41-51); VENOUS PH 7.44 (7.31-7.41); VENOUS PO2 64.4 mmHg (30-40); WHITE BLOOD COUNT 11.8 K/mm3 (4.0-10.0)
[2019-01-31 19:08] LABS: INR 0.99 (0.83-1.09); PROTHROMBIN TIME (PATIENT) 11.7 SEC (9.7-13.0)
[2019-01-31 19:11] LABS: ACTIVATED PTT 29.8 SECONDS (25.2-36.5)
[2019-01-31 19:33] LABS: ALK PHOS 26 U/L (45-117); ANION GAP 13 MMOL/L (8-16); BILIRUBIN,TOTAL 0.7 mg/dL (0.2-1); BLOOD UREA NITROGEN 14 mg/dL (7-18); CALCIUM 8.8 mg/dL (8.5-10.1); CHLORIDE 104 mmol/L (98-107); CO2 25 mmol/L (21-32); GLUCOSE,RANDOM 146 mg/dL (74-106); LIPASE 169 U/L (73-393); MAGNESIUM 1.8 mg/dL (1.8-2.4); POTASSIUM 3.3 mmol/L (3.5-5.1); SGOT/AST 20 U/L (15-37); SGPT/ALT 23 U/L (13-61); SODIUM 141 mmol/L (136-145); TOT PROT 7.4 g/dl (6.4-8.2)
[2019-01-31] MEDS ORDERED: ACETAMINOPHEN 1000 MG/100 ML VIAL (NON FORMULARY) IVPB ONE (20:05)
[2019-01-31] MEDS ORDERED: KCL 10 MEQ IVPB 20 MEQ/200 ML INFUS.BAG IVPB ONE (20:12)
[2019-01-31] MEDS ORDERED: ACETAMINOPHEN INJECTION 100 ML IVPB ONE (20:12)
[2019-01-31] MEDS: KCL 10 MEQ IVPB 10 MEQ/100 ML INFUS.BAG IVPB SCH ×2 (20:30→21:19)
[2019-01-31 20:58] LABS: PH,URINE 8.5 (5.0-8.0); URINE APPEARANCE CLEAR; URINE BILIRUBIN NEGATIVE (NEGATIVE); URINE COLOR YELLOW; URINE GLUCOSE (UA) 3+ (NEGATIVE); URINE KETONE NEGATIVE (NEGATIVE); URINE LEUK ESTERASE NEGATIVE (NEGATIVE); URINE NITRITE NEGATIVE (NEGATIVE); URINE PROTEIN NEGATIVE (NEGATIVE); URINE UROBILINOGEN 0.2 mg/dL (0.2-1.0)
[2019-01-31 21:23] VITALS: TEMP 98.2
[2019-01-31] MEDS ORDERED: SODIUM CHLORIDE 1,000 ML IV STA (21:25)
[2019-01-31 22:29] VITALS: BP 106/66; PULSE 98
--- NOTE | 2019-02-01 10:32 | EKG ---
Test Reason : Blood Pressure : / mmHG Vent. Rate : 108 BPM Atrial Rate : 108 BPM P-R Int : 148 ms QRS Dur : 098 ms QT Int : 344 ms P-R-T Axes : 017 010 036 degrees QTc Int : 460 ms SINUS TACHYCARDIA NONSPECIFIC INTRAVENTRICULAR CONDUCTION DEFECT POOR R WAVE PROGRESSION Confirmed by ALBERTA GOMEZ MD ([id number]) on 02/01/2019 10:32:46 AM Referred By: Confirmed By:ALBERTA GOMEZ MD
== END 2019-01-31 23:29 | disposition home or self-care (01) ==
LOC: JER 17:50
PROC: 3E0337Z Introduction of Electrolytic and Water Balance Substance into Peripheral Vein, Percutaneous Approach (ICD-10-PCS; principal; 2019-01-31)
PROC: 3E033GC Introduction of Other Therapeutic Substance into Peripheral Vein, Percutaneous Approach (ICD-10-PCS; 2019-01-31)
PROC: 3E033NZ Introduction of Analgesics, Hypnotics, Sedatives into Peripheral Vein, Percutaneous Approach (ICD-10-PCS; 2019-01-31)
PROC: 3E033GC Introduction of Other Therapeutic Substance into Peripheral Vein, Percutaneous Approach (ICD-10-PCS; 2019-01-31)
PROC: 3E033NZ Introduction of Analgesics, Hypnotics, Sedatives into Peripheral Vein, Percutaneous Approach (ICD-10-PCS; 2019-01-31)
DX: R10.84 Generalized abdominal pain (principal); I10 Essential (primary) hypertension; E78.00 Pure hypercholesterolemia, unspecified; E11.9 Type 2 diabetes mellitus without complications; Z79.4 Long term (current) use of insulin; I69.854 Hemiplegia and hemiparesis following other cerebrovascular disease affecting left non-dominant side
CPT/HCPCS: 36415; 71045-TC-FY; 71275-TC; 74175-TC; 80053; 81003; 82009; 82272; 82550; 82803; 82962; 83605; 83690; 83735; 84484; 85025; 85610; 85730; 86850; 86900; 86901; 87040; 87086; 93005; 93010; 99284-25; J0131; J7030

== ENCOUNTER 2019-04-04 23:21 | Observation (INO) | payer OTHER ==
[2019-04-04 23:34] VITALS: BMI 24.1
--- NOTE | 2019-04-04 23:59 | PDOC ---
History of Present Illness - General Chief Complaint: Injury Stated Complaint: FALL Time Seen by Provider: 04/04/19 23:52 - History of Present Illness Initial Comments: 63yo M with PMH of HTN, HLD, DM, stroke ten years ago with residual left sided weakness presenting after a fall. Patient states the episode occurred about one or two hours prior to arrival. Patient was getting up from bed to go to the bathroom when he felt dizzy and sat in a chair to rest. He sat on the chair and tumbled along with the chair to the ground and hit the back of his head. Patient reports that things did go black for a moment. No nausea or vomiting. His called EMS and patient was brought to the hospital. Patient noticed swelling on his head and took two tablets of tylenol. Currently endorses 2/10 headache focal to the area of impact. He says that he will feel dizzy upon standing from time to time. 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 He is wondering if he can go home so he can attend a alliance party at his [employer] tomorrow. No fevers, chills, chest pain, or shortness of breath. PCP: Dr. Lozoya Past History - Past Medical History Allergies/Adverse Reactions: Allergies Allergy/AdvReac Type Severity Reaction Status Date / Time No Known Allergies Allergy Verified 04/04/19 23:34 Home Medications: Ambulatory Orders Atorvastatin Ca [Lipitor] 10 mg PO HS 06/11/16 Clopidogrel Bisulfate [Plavix -] 75 mg PO DAILY 06/11/16 Gabapentin [Neurontin -] 100 mg PO DAILY 06/11/16 Aspirin [ASA -] 81 mg PO DAILY 07/14/16 Folic Acid 1 mg PO DAILY 07/14/16 Glipizide Xl [Glucotrol Xl -] 10 mg PO BID 07/14/16 Metformin HCl [Glucophage] 1,000 mg PO BID 07/14/16 Acetaminophen [Tylenol] 650 mg PO PRN 08/02/16 Pioglitazone HCl [Actos] 30 mg PO DAILY 08/02/16 Ramipril 5 mg PO DAILY 08/02/16 Empagliflozin [Jardiance] 25 mg PO DAILY 10/10/18 Magnesium Oxide [Mag-Ox -] 400 mg PO DAILY 10/10/18 Sitagliptin Phosphate [Januvia] 100 mg PO DAILY 10/10/18 CVA: Yes (Left sided weakness) COPD: No Diabetes: Yes HTN: Yes Hypercholesterolemia: Yes - Immunization History Immunization Up to Date: Yes - Suicide/Smoking/Psychosocial Hx Smoking History: Never smoked Have you smoked in the past 12 months: No Information on smoking cessation initiated: No Hx Alcohol Use: No Drug/Substance Use Hx: No Substance Use Type: None Review of Systems - Review of Systems Comments:: Constitutional: no fever, no chills HEENT: no throat pain, no dysphagia Cardiovascular: no chest pain, no palpitations Respiratory: no cough, no shortness of breath Gastrointestinal: no abdominal pain, no nausea Genitourinary: no dysuria, no frequency Musculoskeletal: no myalgia, no arthralgia Skin: no rash, no itching Neurologic: +headache, +dizziness *Physical Exam - Vital Signs Last Vital Signs Temp Pulse Resp BP Pulse Ox 98.2 F 74 18 139/76 100 04/04/19 23:30 04/04/19 23:30 04/04/19 23:30 04/04/19 23:30 04/04/19 23:30 - Physical Exam Comments: General: Awake, alert, and fully oriented, in no acute distress Head: Soft tissue swelling on posterior head without laceration Eyes: EOMI, sclera anicteric ENT: Moist mucus membranes Neck: Normal ROM, supple, some tenderness upon palpation of left side of neck. No midline tenderness, no stepoffs or deformities Lungs: Lungs clear, Normal breath sounds Cardio: Regular rhythm, S1 and S2 present Abdomen: Soft, nontender. No guarding, no rebound, no masses Extremities: Normal range of motion, Distal pulses present SKIN: Warm, Dry, normal turgor Neurologic: Cranial nerves II through XII intact. Normal speech, sensation, strength, coordination, and gait. Patient walks with a cane. ED Treatment Course - LABORATORY CBC & Chemistry Diagram: 04/05/19 01:42 04/05/19 01:42 Medical Decision Making - Medical Decision Making 63yo M with PMH of HTN, HLD, DM, stroke ten years ago with residual left sided weakness presenting after a fall. DDX includes but not limited to vasovagal syncope, cardiogenic syncope, metabolic syncope, neurogenic syncope, postural syncope, seizure EKG Labs CT Head/Cspine History consistent with pre-syncope Likely telemetry observation admission 04/05/19 00:31 Patient signed out to Dr. Hanson and night team. 04/05/19 02:12 *DC/Admit/Observation/Transfer Diagnosis at time of Disposition: Pre-syncope Fall Qualifiers: Encounter type: initial encounter Qualified Code(s): W19.XXXA - Unspecified fall, initial encounter - Discharge Dispostion Condition at time of disposition: Guarded - Referrals Referrals: ON STAFF,NOT [Primary Care Provider] - - Patient Instructions - Post Discharge Activity
--- NOTE | 2019-04-05 01:03 | PDOC ---
Documentation entered by Claudio Sunshine SCRIBE, acting as scribe for Gerri Wiggins DO. Gerri Wiggins DO: This documentation has been prepared by the Bita aquino Nirvannie, SCRIBE, under my direction and personally reviewed by me in its entirety. I confirm that the documentation accurately reflects all work, treatment, procedures, and medical decision making performed by me. Attending Attestation - Resident Resident Name: Lupe Cisse - ED Attending Attestation I have performed the following: I have examined & evaluated the patient, The case was reviewed & discussed with the resident, I agree w/resident's findings & plan - HPI HPI: 04/05/19 01:10 The patient is a 63 year old male, with a significant past medical history of HTN, HLD, IDDM, and CVA (residual left-sided weakness) , who presents to the emergency department s/p fall. As per patient, approximately 2 hours prior to his arrival he he got out of bed at which time began to feel dizzy and attempted to sit in a chair but, subsequently tumbled with the chair. Patient notes when he fell he hit the back of his head and endorses loss of consciousness. He denies any recent nausea, vomit, diarrhea or constipation. He denies any recent chest pain or shortness of breath. He denies any recent dysuria, frequency, urgency or hematuria. Allergies: NKDA - Physicial Exam PE: 04/05/19 01:14 Constitutional: Awake, alert, oriented. No acute distress. Head: Normocephalic. Atraumatic Eyes: PERRL. EOMI. Conjunctivae are not pale. ENT: Mucous membranes are moist and intact. Posterior pharynx without exudates or erythema. Uvula midline. Neck: Supple. Full ROM. No lymphadenopathy. Cardiovascular: Regular rate. Regular rhythm. S1, S2 regular. Distal pulses are 2+ and symmetric. Pulmonary/Chest: No evidence of respiratory distress. Clear to auscultation bilaterally No wheezing, rales or rhonchi. Abdominal: Soft and non-distended. There is no tenderness. No rebound, guarding or rigidity. No organomegaly. No palpable masses. Good bowel sounds. Back: No CVA tenderness. Musculoskeletal: No edema. No cyanosis. No clubbing. Full range of motion in all extremities. No calf tenderness. Radial/pedal pulses are intact and 2+ bilaterally Skin: Skin is warm and dry. No petechiae. No purpura. Neurological: Alert and oriented to person, place, and time. Cranial nerves II -XII are grossly intact. Normal speech. Strength is grossly symmetric, 5/5. No sensory deficits. Ambulates with a steady gait with the assistance of a cane. No motor deficits in the in face, upper extremities and lower extremities. No pronator drift. Psychiatric: Good eye contact. Normal interaction, affect and behavior. - Medical Decision Making 04/05/19 01:00 I, Dr. Gerri Wiggins, DO, attest that this document has been prepared under my direction and personally reviewed by me in its entirety. I further attest, that it accurately reflects all work, treatment, procedures and medical decision -making performed by me. 04/05/19 01:00 a/p: 63yo male with hx of htn, hld, dm with an episode of lightheaded tonight, sat in a chair, then fell out of the chair/hit head +loc -pt with L lateral neck pain, no midline ttp, no stepoffs or deformities -no cp/sob -ayoub now -no abd pain, no n/v/d -no paresthesias or weakness -pt walks with a cane at baseline -will send labs, trop, ekg, head ct, c spine ct 04/05/19 02:[address] in tele obs for further eval of near syncope
--- NOTE | 2019-04-05 01:57 | PDOC ---
*Physical Exam - Vital Signs Last Vital Signs Temp Pulse Resp BP Pulse Ox 98.2 F 74 18 139/76 100 04/04/19 23:30 04/04/19 23:30 04/04/19 23:30 04/04/19 23:30 04/04/19 23:30 ED Treatment Course - LABORATORY CBC & Chemistry Diagram: 04/05/19 01:42 04/05/19 01:42 - RADIOLOGY Radiograph Interpretation: Head CT w/o contrast: THIS IS A PRELIMINARY REPORT FROM IMAGING [facility]OWERPLANT OPERATOR DATE OF SERVICE: 2019-04-05 02:07:43 IMAGES: [id number] EXAM: HEAD CT WITHOUT CONTRAST HISTORY: Patient fell COMPARISON: None. FINDINGS: Involutional changes. Old right periventricular white matter infarct. Chronic microvascular changes. No hemorrhage. Osseous structures are intact. One or more of the following dose reduction techniques were used: automated exposure control, adjustment of the mA and/or kV according to patient size, use of iterative reconstructive technique. THIS DOCUMENT HAS BEEN ELECTRONICALLY SIGNED Alvin Rider MD 04/05/2019 03:04 EST C-Spine CT: THIS IS A PRELIMINARY REPORT FROM [facility]PER[facility] DATE OF SERVICE: 2019-04-05 02:11:20 IMAGES: [id number] EXAM: CERVICAL SPINE CT W/O CONTR HISTORY: Patient fell COMPARISON: None. FINDINGS: Negative for cervical fracture or malalignment. One or more of the following dose reduction techniques were used: automated exposure control, adjustment of the mA and/or kV according to patient size, use of iterative reconstructive technique. THIS DOCUMENT HAS BEEN ELECTRONICALLY SIGNED Alvin Rider MD 04/05/2019 03:12 EST Medical Decision Making - Medical Decision Making Received sign out from resident Dr. Cisse. 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 He presented today after possible syncopal episode vs fall. Struck his head with focal pain. Will f/u on pending CT scans and laboratory studies. Anticipate admission for syncopal episode. CBC unremarkable for anemia or leukocytosis. CMP revealed hyperglycemia, which is consistent with h/o of DM and previous BGLs noted in [facility]. No significant electrolyte derangement noted. Troponin not elevated. Head and c- spine CTs were unremarkable for acute pathology. In person consultation with resident Dr. Bray. Verbally appraised of the pts HPI, ED course, and current plan of management. Will admit pt to telemetry for observation for attending Dr. Curry. *DC/Admit/Observation/Transfer Diagnosis at time of Disposition: Pre-syncope Fall Qualifiers: Encounter type: initial encounter Qualified Code(s): W19.XXXA - Unspecified fall, initial encounter - Discharge Dispostion Condition at time of disposition: Guarded Decision to Admit order: Yes - Referrals Referrals: ON STAFF,NOT [Primary Care Provider] - - Patient Instructions - Post Discharge Activity
[2019-04-05 01:59] LABS: BASO % 0.8 % (0-2.0); EOS % 3.1 % (0-4.5); HEMATOCRIT 47.5 % (35.4-49); HEMOGLOBIN 15.6 GM/dL (11.7-16.9); MCH 29.1 pg (25.7-33.7); MCHC 32.7 g/dl (32.0-35.9); MONO % 6.4 % (3.8-10.2); NEUT % 69.7 % (42.8-82.8); PLATELET COUNT 167 K/MM3 (134-434); RBC 5.34 M/mm3 (4.00-5.60); RDW 12.9 % (11.9-15.9)
[2019-04-05 02:18] LABS: INR 0.91 (0.83-1.09); PROTHROMBIN TIME (PATIENT) 10.7 SEC (9.7-13.0)
[2019-04-05 02:21] LABS: ACTIVATED PTT 34.3 SECONDS (25.2-36.5)
[2019-04-05 02:40] LABS: ALBUMIN 4.3 g/dl (3.4-5.0); ALK PHOS 32 U/L (45-117); ANION GAP 7 MMOL/L (8-16); BILIRUBIN,TOTAL 0.8 mg/dL (0.2-1); BLOOD UREA NITROGEN 14 mg/dL (7-18); CHLORIDE 102 mmol/L (98-107); CO2 27 mmol/L (21-32); CREATININE 0.9 mg/dL (0.55-1.3); SGOT/AST 14 U/L (15-37); SGPT/ALT 27 U/L (13-61); SODIUM 135 mmol/L (136-145); TOT PROT 7.8 g/dl (6.4-8.2)
[2019-04-05 02:44] LABS: GLUCOSE,RANDOM 328 mg/dL (74-106)
--- NOTE | 2019-04-05 03:55 | PN ---
Teaching Attending Note Name of Resident: Indu Bray ATTENDING PHYSICIAN STATEMENT I saw and evaluated the patient. I reviewed the resident's note and discussed the case with the resident. I agree with the resident's findings and plan as documented. SUBJECTIVE: Patient is a 63 year old man with a PMH of HTN, HLD, NIDDM and CVA (10 years ago with residual left sided weakness) who presents after a fall about two hours prior to arrival. Patient was getting up from bed to go to the bathroom when he felt dizzy and sat in a chair to rest. He sat on the chair and tumbled along with the chair to the ground and hit the back of his head. Patient reports that things did go black for a moment. No nausea or vomiting. His called EMS. Patient noticed swelling on his head and took two tablets of tylenol. ambulates with cane at baseline. Currently has headache focal to the area of impact. He says that he will feel dizzy upon standing from time to time. 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 Denies fevers , chills, chest pain, or shortness of breath. OBJECTIVE: Alert with orthostatic blood pressure changes Vital Signs Period Temp Pulse Resp BP Sys/[place] Pulse Ox Last 24 Hr 98.2 F 74 18 139/76 100 HEENT: No Jaundice, eye redness or discharge, PERRLA, EOMI. Normocephalic; tender swelling on occipital scalp, no bleeding. External ears are normal and hearing is grossly intact. No nasal discharge. Neck: Supple; no limitation in ROM; tender left side of neck. No palpable adenopathy or thyromegaly. No JVD Chest: Good effort. Clear to auscultation and percussion. Heart: Regular. No S3, rub or murmur Abdomen: Not distended, soft, nontender and no HSM. No rebound or guarding. Normal bowel sounds. Ext: Peripheral pulses intact. No leg edema. Skin: Warm and dry. No petechiae, rash or ecchymosis. Neuro: Alert. Oriented x3. CN 2-12 grossly intact. Slow gait. Sensation grossly intact in all four extremities and DTR are symmetric. Plantar reflexes are flexor. Psych: Appropriate mood and affect. Good insight. Home Medications Medication Instructions Recorded Atorvastatin Ca [Lipitor] 10 mg PO HS 06/11/16 Clopidogrel Bisulfate [Plavix -] 75 mg PO DAILY 06/11/16 Gabapentin [Neurontin -] 100 mg PO DAILY 06/11/16 Aspirin [ASA -] 81 mg PO DAILY 07/14/16 Folic Acid 1 mg PO DAILY 07/14/16 Glipizide Xl [Glucotrol Xl -] 10 mg PO BID 07/14/16 Metformin HCl [Glucophage] 1,000 mg PO BID 07/14/16 Acetaminophen [Tylenol] 650 mg PO PRN 08/02/16 Pioglitazone HCl [Actos] 30 mg PO DAILY 08/02/16 Ramipril 5 mg PO DAILY 08/02/16 Empagliflozin [Jardiance] 25 mg PO DAILY 10/10/18 Magnesium Oxide [Mag-Ox -] 400 mg PO DAILY 10/10/18 Sitagliptin Phosphate [Januvia] 100 mg PO DAILY 10/10/18 Abnormal Lab Results 04/05/19 01:42 Sodium 135 L Anion Gap 7 L Random Glucose 328 H* AST 14 L Alkaline Phosphatase 32 L ASSESSMENT AND PLAN: 1. Syncope with head trauma - Picture consistent with a vasovagal syncope. Osmotic diuresis induced by hyperglycemia may have led to dehydration. Head CT showed old right infarct with no acute abnormality. C spine CT didnot show a fracture or any abnormality. No acute pathology on CXR and EKG shows NSR with no ST-T wave changes. Will monitor on telemetry, get carotid doppler, urinalysis , fasting lipids, ECHO and implement fall precautions. Being hydrated and hyperglycemia being corrected. Apply cold compress to swelling on occipital scalp and repeat head CT in 24 hours. 2. Uncontrolled DM Unclear why he developed hyperglycemia. Not in DKA and no evidence of infection. Will hydrate with IV NS and give SQ insulin. Will hold the home diabetes drugs and implement sliding scale insulin regimen. Provide comprehensive diabetes care with patient teaching and counseling about the importance of adherence to prescribed diabetes regimen, euglycemia, eye care and foot care. 3. Hypertension - Restart outpatient antihypertensive drugs when clinically appropriate. Nonpharmacologic measures to control hypertension like weight loss , salt restriction and exercise discussed. 4. DVT prophylaxis - Lovenox 40 mg SQ q 24 hours. 5. Advance directives - Full code
[2019-04-05] MEDS ORDERED: SODIUM CHLORIDE 0.9% 500 ML INFUS.BAG IV ONE (04:03)
[2019-04-05 04:28] LABS: PH,URINE 6.5 (5.0-8.0); URINE APPEARANCE CLEAR; URINE BILIRUBIN NEGATIVE (NEGATIVE); URINE COLOR YELLOW; URINE GLUCOSE (UA) 3+ (NEGATIVE); URINE KETONE NEGATIVE (NEGATIVE); URINE LEUK ESTERASE NEGATIVE (NEGATIVE); URINE NITRITE NEGATIVE (NEGATIVE); URINE PROTEIN NEGATIVE (NEGATIVE); URINE UROBILINOGEN 0.2 mg/dL (0.2-1.0)
[2019-04-05] MEDS ORDERED: SODIUM CHLORIDE 1,000 ML IV SCH (04:30)
--- NOTE | 2019-04-05 05:03 | HP ---
CHIEF COMPLAINT: fall PCP: Dr. Lozoya HISTORY OF PRESENT ILLNESS: Patient is a 63 y/o male with a history of HTN, HLD, DM, and stroke 10 ears ago with residual left sided weakness who presents for a fall. Patient was getting out of bed to go to the bathroom when he became lightheaded and feel back and hit the back of his head. Per patient lost consciousness for a little while. Patient reports in the past he has stood up and gotten dizzy before but does not fall. Patient currently denies a headache or any change in vision. Patient has no other complaints and he takes his medication. Upon my evaluation in the ED patient positive for orthostatics. 1L of fluid ordered. ER course was notable for: (1) (2) (3) Recent Travel: denies PAST MEDICAL HISTORY: HTN, HLD, DM, stroke PAST SURGICAL HISTORY: Social History: Smoking: denies Alcohol: denies Drugs: denies Family History: Allergies No Known Allergies Allergy (Verified 04/04/19 23:34) HOME MEDICATIONS: Home Medications Medication Instructions Recorded Atorvastatin Ca [Lipitor] 10 mg PO HS 06/11/16 Clopidogrel Bisulfate [Plavix -] 75 mg PO DAILY 06/11/16 Gabapentin [Neurontin -] 100 mg PO DAILY 06/11/16 Aspirin [ASA -] 81 mg PO DAILY 07/14/16 Folic Acid 1 mg PO DAILY 07/14/16 Glipizide Xl [Glucotrol Xl -] 10 mg PO BID 07/14/16 Metformin HCl [Glucophage] 1,000 mg PO BID 07/14/16 Acetaminophen [Tylenol] 650 mg PO PRN 08/02/16 Pioglitazone HCl [Actos] 30 mg PO DAILY 08/02/16 Ramipril 5 mg PO DAILY 08/02/16 Empagliflozin [Jardiance] 25 mg PO DAILY 10/10/18 Magnesium Oxide [Mag-Ox -] 400 mg PO DAILY 10/10/18 Sitagliptin Phosphate [Januvia] 100 mg PO DAILY 10/10/18 REVIEW OF SYSTEMS positive : fall, head trauma, denies: change in vision, nausea, bleeding, vomiting, chest pain, shortness of breath, diarrhea PHYSICAL EXAMINATION Vital Signs - 24 hr 04/04/19 04/05/19 04/05/19 23:30 03:26 03:28 Temperature 98.2 F Pulse Rate 74 Pulse Rate [ 74 81 Radial] Respiratory 18 Rate Blood Pressure 139/76 Blood Pressure 121/76 93/63 [Left Arm] O2 Sat by Pulse 100 Oximetry (%) GENERAL: Awake, alert, and fully oriented, in no acute distress. HEAD: Normal with no signs of trauma. EYES: Pupils equal, round and reactive to light, extraocular movements intact, EARS, NOSE, THROAT: Moist mucous membranes. NECK: Normal range of motion, LUNGS: Breath sounds equal, clear to auscultation bilaterally. No wheezes, and no crackles. No accessory muscle use. HEART: Regular rate and rhythm, normal S1 and S2 without murmur, rub or gallop. ABDOMEN: Soft, nontender, not distended, normoactive bowel sounds, no guarding, no rebound, no masses. LOWER EXTREMITIES: 2+ pulses, warm, well-perfused. No calf tenderness. No peripheral edema. NEUROLOGICAL: gait with cane, ROM intact of joints PSYCHIATRIC: Cooperative. Good eye contact. Appropriate mood and affect. SKIN: Warm, dry, normal turgor, no rashes or lesions noted, normal capillary refill. CBCD WBC 5.0 K/mm3 (4.0-10.0) 04/05/19 01:42 RBC 5.34 M/mm3 (4.00-5.60) 04/05/19 01:42 Hgb 15.6 GM/dL (11.7-16.9) 04/05/19 01:42 Hct 47.5 % (35.4-49) 04/05/19 01:42 MCV 89.0 fl (80-96) 04/05/19 01:42 MCHC 32.7 g/dl (32.0-35.9) 04/05/19 01:42 RDW 12.9 % (11.9-15.9) 04/05/19 01:42 Plt Count 167 K/MM3 (134-434) 04/05/19 01:42 MPV 9.0 fl (7.5-11.1) 04/05/19 01:42 CMP Sodium 135 mmol/L (136-145) L 04/05/19 01:42 Potassium 4.0 mmol/L (3.5-5.1) 04/05/19 01:42 Chloride 102 mmol/L (98-107) 04/05/19 01:42 Carbon Dioxide 27 mmol/L (21-32) 04/05/19 01:42 Anion Gap 7 MMOL/L (8-16) L 04/05/19 01:42 BUN 14 mg/dL (7-18) 04/05/19 01:42 Creatinine 0.9 mg/dL (0.55-1.3) 04/05/19 01:42 Calcium 9.0 mg/dL (8.5-10.1) 04/05/19 01:42 Total Bilirubin 0.8 mg/dL (0.2-1) 04/05/19 01:42 AST 14 U/L (15-37) L 04/05/19 01:42 ALT 27 U/L (13-61) 04/05/19 01:42 Alkaline Phosphatase 32 U/L (45-117) L 04/05/19 01:42 Total Protein 7.8 g/dl (6.4-8.2) 04/05/19 01:42 Albumin 4.3 g/dl (3.4-5.0) 04/05/19 01:42 ASSESSMENT/PLAN: Patient is a 63 y/o male with a history of HTN, HLD, DM, and stroke 10 ears ago with residual left sided weakness who presents for a fall. #Fall - likely 2/2 to orthostatic hypotension, cannot r/o cardiac abnormalities - Orthostatics positive: sittin/76 74, standing 93/63 81 - 1L fluid ordered, continue NS @ 100 - in am echo, carotid doppler, monitor on tele - f/u morning labs, tsh - fall precautions - repeat head CT in 24 hours - EKG normal sinus, no ST elevations - head CT:old R periventricular white matter infarct, chronic microvascular changes, no hemorrhage #HTN - currently orthostatic positive, continue fluids - reconcile meds in the morning #DM - BGM ACHS - SS #stroke - continue clopidogrel and aspirin - old left sided weakness #DVT - SCD's for now FEN - low sodium and diabetic diet dispo: monitor on tele, nasrin wrong pharmacy called and they have not seen him since june, please reconcile medications Visit type - Emergency Visit Emergency Visit: Yes ED Registration Date: 04/05/19 Care time: The patient presented to the Emergency Department on the above date and was hospitalized for further evaluation of their emergent condition. - New Patient This patient is new to me today: Yes Date on this admission: 04/05/19 - Critical Care Critical Care patient: No
[2019-04-05] MEDS ORDERED: INSULIN (NOVOLOG) ASPART 100 UNITS/ML 10ML VIAL ONE ×2 (06:58→12:01)
[2019-04-05] MEDS: INSULIN SLIDING SCALE (NOVOLOG) 1 VIAL SQ SCH ×2 (07:02→11:58)
[2019-04-05] MEDS ORDERED: CLOPIDOGREL BISULFATE 75 MG TABLET (FP) PO SCH (10:00)
[2019-04-05] MEDS ORDERED: ASPIRIN 81 MG CHEWABLE TABLETS PO SCH (10:00)
[2019-04-05 11:09] LABS: BASO % 0.8 % (0-2.0); EOS % 2.5 % (0-4.5); HEMATOCRIT 42.5 % (35.4-49); HEMOGLOBIN 14.3 GM/dL (11.7-16.9); LYMPH % 21.9 % (8-40); MCH 29.7 pg (25.7-33.7); MCHC 33.6 g/dl (32.0-35.9); MEAN CELL VOLUME 88.3 fl (80-96); MEAN PLT VOLUME 8.4 fl (7.5-11.1); MONO % 7.6 % (3.8-10.2); NEUT % 67.2 % (42.8-82.8); PLATELET COUNT 151 K/MM3 (134-434); RBC 4.81 M/mm3 (4.00-5.60); RDW 13.2 % (11.9-15.9); WHITE BLOOD COUNT 4.6 K/mm3 (4.0-10.0)
--- NOTE | 2019-04-05 11:45 | ECHO ---
Name: ROSEMARY ABEBE Exam:Adult Echocardiogram Study Date: 04/05/2019 10:00 AM Age: 63 yrs Reason For Study: SYNCOPE Height: 68 in Weight: 158 lb BSA: 1.8 m2 MMode/2D Measurements & Calculations IVSd: 0.84 cm Ao root diam: 2.8 cm LVIDd: 4.7 cm LA dimension: 3.3 cm LVIDs: 3.4 cm LVPWd: 0.83 cm EDV(Teich): 104.8 ml LVOT diam: 2.1 cm ESV(Teich): 48.9 ml Doppler Measurements & Calculations MV E max marcos: 56.2 cm/sec Ao V2 max: 129.0 cm/sec MV A max marcos: 63.4 cm/sec Ao max P.7 mmHg MV E/A: 0.89 Ao V2 mean: 92.6 cm/sec MV dec time: 0.19 sec Ao mean P.6 mmHg Ao V2 VTI: 30.0 cm CLARKE(I,D): 1.4 cm2 CLARKE(V,D): 1.3 cm2 LV V1 max P.1 mmHg MR max marcos: 306.5 cm/sec LV V1 mean P.57 mmHg MR max P.0 mmHg LV V1 max: 52.2 cm/sec LV V1 mean: 35.1 cm/sec LV V1 VTI: 12.3 cm SV(LVOT): 41.0 ml TR max marcos: 214.8 cm/sec TR max P.4 mmHg Med Peak E' Marcos: 5.6 cm/sec Med E/e': 10.1 Lat Peak E' Marcos: 5.8 cm/sec Lat E/e': 9.8 Left Ventricle Ejection Fraction = 50%. The transmitral spectral Doppler flow pattern is suggestive of impaired LV relaxation. Right Ventricle The right ventricle is normal in size and function. Atria Normal left and right atrial size and function. Mitral Valve There is mild mitral valve thickening. There is no mitral valve stenosis. There is mild mitral regurg itation. Tricuspid Valve The tricuspid valve is normal in structure and function. There is mild tricuspid regurgitation. Aortic Valve There is mild aortic sclerosis.;. No hemodynamically significant valvular aortic stenosis. No aortic regurgitation is present. Pulmonic Valve The pulmonic valve is not well seen, but is grossly normal. There is no pulmonic valvular stenosis. Great Vessels The aortic root is normal size. Pericardium/Pleura There is no pericardial effusion. Interpretation Summary Ejection Fraction = 50%. The transmitral spectral Doppler flow pattern is suggestive of impaired LV relaxation. The right ventricle is normal in size and function. There is mild mitral valve thickening. There is mild mitral regurgitation. There is mild tricuspid regurgitation. There is mild aortic sclerosis.; There is no pericardial effusion. MD Johnson *Gissel 04/05/2019 11:44 AM
[2019-04-05 11:48] LABS: ALBUMIN 3.4 g/dl (3.4-5.0); BILIRUBIN,TOTAL 0.9 mg/dL (0.2-1); CALCIUM 8.2 mg/dL (8.5-10.1); CREATININE 0.8 mg/dL (0.55-1.3); MAGNESIUM 2.2 mg/dL (1.8-2.4); PHOSPHOROUS 2.8 mg/dL (2.5-4.9); POTASSIUM 3.8 mmol/L (3.5-5.1); TOT PROT 6.3 g/dl (6.4-8.2)
[2019-04-05 11:54] LABS: INR 0.97 (0.83-1.09); PROTHROMBIN TIME (PATIENT) 11.4 SEC (9.7-13.0)
--- NOTE | 2019-04-05 14:58 | DS ---
Physical Exam: SUBJECTIVE: Patient seen and examined OBJECTIVE: Vital Signs Temperature 97.6 F 04/05/19 15:17 Pulse Rate 62 04/05/19 15:17 Respiratory Rate 20 04/05/19 15:17 Blood Pressure 142/76 04/05/19 15:17 O2 Sat by Pulse Oximetry (%) 99 04/05/19 07:28 PHYSICAL EXAM GENERAL: The patient is awake, alert, and fully oriented, in no acute distress. EYES: extraocular movements intact. NECK: Trachea midline, full range of motion, supple. LUNGS: Breath sounds equal, clear to auscultation bilaterally HEART: Regular rate and rhythm, S1, S2 ABDOMEN: Soft, nontender, nondistended, normoactive bowel sounds EXTREMITIES: 2+ pulses, warm, well-perfused, no edema. NEUROLOGICAL: Cranial nerves II through XII grossly intact. Normal speech SKIN: Warm, dry LABS CBCD WBC 4.6 K/mm3 (4.0-10.0) 04/05/19 10:55 RBC 4.81 M/mm3 (4.00-5.60) 04/05/19 10:55 Hgb 14.3 GM/dL (11.7-16.9) 04/05/19 10:55 Hct 42.5 % (35.4-49) 04/05/19 10:55 MCV 88.3 fl (80-96) 04/05/19 10:55 MCHC 33.6 g/dl (32.0-35.9) 04/05/19 10:55 RDW 13.2 % (11.9-15.9) 04/05/19 10:55 Plt Count 151 K/MM3 (134-434) 04/05/19 10:55 MPV 8.4 fl (7.5-11.1) 04/05/19 10:55 CMP Sodium 138 mmol/L (136-145) 04/05/19 10:55 Potassium 3.8 mmol/L (3.5-5.1) 04/05/19 10:55 Chloride 107 mmol/L (98-107) 04/05/19 10:55 Carbon Dioxide 28 mmol/L (21-32) 04/05/19 10:55 Anion Gap 3 MMOL/L (8-16) L 04/05/19 10:55 BUN 9 mg/dL (7-18) 04/05/19 10:55 Creatinine 0.8 mg/dL (0.55-1.3) 04/05/19 10:55 Random Glucose 232 mg/dL (74-106) H 04/05/19 10:55 Calcium 8.2 mg/dL (8.5-10.1) L 04/05/19 10:55 Total Bilirubin 0.9 mg/dL (0.2-1) 04/05/19 10:55 AST 10 U/L (15-37) L 04/05/19 10:55 ALT 20 U/L (13-61) 04/05/19 10:55 Alkaline Phosphatase 25 U/L (45-117) L 04/05/19 10:55 Total Protein 6.3 g/dl (6.4-8.2) L 04/05/19 10:55 Albumin 3.4 g/dl (3.4-5.0) 04/05/19 10:55 CARDIAC ENZYMES Troponin I < 0.02 ng/ml (0.00-0.05) 04/05/19 01:42 HOSPITAL COURSE: Date of Admission:04/05/19 Date of Discharge: 04/05/19 63 y/o M w/PMH of HTN, HLD, DM, CVA 10 years ago w/L sided residual weakness presented after a fall and syncope. Pt was getting up from bed to go to the bathroom, became lightheaded and fell and was brought to the ER. Pt had negative for acute pathology head CT, negative C-spine CT, CXR. Echo was done and showed 50% EF and LV impaired relaxation. Carotid U/S did not show significant hemodynamic stenoses. Orthostatics done by medicine team found to be positive. 1 L fluid bolus given. Pt reassesed after bolus and orthostatic vital signs done by me showed: supine: 131/63; sitting 131/71; standing 123/63. Pt was advised to f/u with PCP within 1 week to assess anti-hypertensives. He was educated to change positions slowly to avoid dizziness. He was also advised to stay hydrated. Minutes to complete discharge: 55 Discharge Summary Reason For Visit: DIZZINESS,PRE-SYNCOPE,FALL Current Active Problems Fall (Acute) Pre-syncope (Acute) Condition: Improved - Instructions Diet, Activity, Other Instructions: DISCHARGE INSTRUCTIONS MEDICATIONS: -Continue taking your medications as they were prescribed to you before coming to the hospital. -Please talk to your primary care doctor about "orthostatic hypotension" and to reassess your blood pressure medications. FOLLOW UPS: -follow up with your primary care doctor within 1 week. You need to reassess your blood pressure medications with your doctor. INSTRUCTIONS: -stay hydrated and drink plenty of water to help keep from getting your dizziness. -Make sure to eat a proper well balanced diet daily. -If you develop worsening of your presenting symptoms, chest pain, shortness of breath, fevers, or chills come back to the ER. Referrals: Nabeel Lozoya MD [Non Staff, Medical] - Disposition: HOME - Home Medications Comprehensive Discharge Medication List: Ambulatory Orders Atorvastatin Ca [Lipitor] 10 mg PO HS 06/11/16 Clopidogrel Bisulfate [Plavix -] 75 mg PO DAILY 06/11/16 Gabapentin [Neurontin -] 100 mg PO DAILY 06/11/16 Aspirin [ASA -] 81 mg PO DAILY 07/14/16 Folic Acid 1 mg PO DAILY 07/14/16 Glipizide Xl [Glucotrol Xl -] 10 mg PO BID 07/14/16 Metformin HCl [Glucophage] 1,000 mg PO BID 07/14/16 Acetaminophen [Tylenol] 650 mg PO PRN 08/02/16 Pioglitazone HCl [Actos] 30 mg PO DAILY 08/02/16 Ramipril 5 mg PO DAILY 08/02/16 Empagliflozin [Jardiance] 25 mg PO DAILY 10/10/18 Magnesium Oxide [Mag-Ox -] 400 mg PO DAILY 10/10/18 Sitagliptin Phosphate [Januvia] 100 mg PO DAILY 10/10/18 This patient is new to me today: Yes Date on this admission: 04/05/19 Emergency Visit: Yes ED Registration Date: 04/05/19 Care time: The patient presented to the Emergency Department on the above date and was hospitalized for further evaluation of their emergent condition. Critical Care patient: No - Discharge Referral Referred to [facility] No
--- NOTE | 2019-04-05 15:08 | EKG ---
Test Reason : Blood Pressure : / mmHG Vent. Rate : 073 BPM Atrial Rate : 073 BPM P-R Int : 162 ms QRS Dur : 102 ms QT Int : 400 ms P-R-T Axes : 049 009 040 degrees QTc Int : 440 ms NORMAL SINUS RHYTHM NORMAL ECG WHEN COMPARED WITH ECG OF 31-JAN-2019 17:55, NO SIGNIFICANT CHANGE WAS FOUND Confirmed by ALBERTA GOMEZ MD ([id number]) on 04/05/2019 3:08:05 PM Referred By: Confirmed By:ALBERTA GOMEZ MD
[2019-04-05 15:18] VITALS: BP 142/76; PULSE 62; TEMP 97.6
--- NOTE | 2019-04-05 17:34 | PN ---
Teaching Attending Note Name of Resident: Felix Russell ATTENDING PHYSICIAN STATEMENT I saw and evaluated the patient. I reviewed the resident's note and discussed the case with the resident. I agree with the resident's findings and plan as documented. SUBJECTIVE: Mr Goetz says he is feeling well. Denies cp, sob, n/v. OBJECTIVE: Last Vital Signs Temp Pulse Resp BP Pulse Ox 36.4 C 62 20 142/76 99 04/05/19 15:17 04/05/19 15:17 04/05/19 15:17 04/05/19 15:17 04/05/19 07:28 Gen: nad Pulm: ctab CV: rrr Abd: +bs, s/nt/nd Ext: no c/c/e CBC, BMP 04/05/19 10:55 04/05/19 10:55 Mr Goetz is a pleasant 63 year old male who came in with syncope. He was admitted under observation. He was found to be orthostatic. He was hydrated and this resolved. His symptoms resolved with hydration. He had an ECHO, carotid ultrasound, and head CT which were normal. He is safe for discharge home. Problem List - Problems (1) Pre-syncope Code(s): R55 - SYNCOPE AND COLLAPSE (2) CVA (cerebral vascular accident) Code(s): I63.9 - CEREBRAL INFARCTION, UNSPECIFIED (3) HTN (hypertension) Code(s): I10 - ESSENTIAL (PRIMARY) HYPERTENSION
== END 2019-04-05 16:04 | disposition home or self-care (01) ==
LOC: JER 23:21 → JERBED 04-05 03:32
PROVIDERS: ADMIT Internal Medicine; ATTEND Internal Medicine
PROC: 3E0337Z Introduction of Electrolytic and Water Balance Substance into Peripheral Vein, Percutaneous Approach (ICD-10-PCS; principal; 2019-04-05)
PROC: 3E013VG Introduction of Insulin into Subcutaneous Tissue, Percutaneous Approach (ICD-10-PCS; 2019-04-05)
DX: R55 Syncope and collapse (principal); R42 Dizziness and giddiness; S06.9X1A Unspecified intracranial injury with loss of consciousness of 30 minutes or less, initial encounter; W18.39XA Other fall on same level, initial encounter; Y93.89 Activity, other specified; Y92.009 Unspecified place in unspecified non-institutional (private) residence as the place of occurrence of the external cause; I10 Essential (primary) hypertension; E78.5 Hyperlipidemia, unspecified; E11.65 Type 2 diabetes mellitus with hyperglycemia; I69.354 Hemiplegia and hemiparesis following cerebral infarction affecting left non-dominant side; Z79.82 Long term (current) use of aspirin; Z79.84 Long term (current) use of oral hypoglycemic drugs
CPT/HCPCS: 36415; 70450-TC; 71046-TC-FY; 72125-TC; 80053; 81003; 82962; 83735; 84100; 84443; 84484; 85025; 85610; 85730; 87086; 93005; 93010; 93306-TC; 93880-TC; 96372; 99284-25; G0378; J7030

== ENCOUNTER 2019-11-03 08:55 | Emergency (ER) | payer OTHER ==
[2019-11-03 09:33] VITALS: BMI 25.7
[2019-11-03 10:10] LABS: BASO % 0.7 % (0-2.0); HEMATOCRIT 42.9 % (35.4-49); HEMOGLOBIN 14.3 GM/dL (11.7-16.9); LYMPH % 13.7 % (8-40); MCH 29.3 pg (25.7-33.7); MCHC 33.4 g/dl (32.0-35.9); MEAN CELL VOLUME 87.5 fl (80-96); MEAN PLT VOLUME 8.2 fl (7.5-11.1); MONO % 9.6 % (3.8-10.2); PLATELET COUNT 176 K/MM3 (134-434); RDW 13.5 % (11.9-15.9); WHITE BLOOD COUNT 6.1 K/mm3 (4.0-10.0)
[2019-11-03 10:31] LABS: ALBUMIN 3.4 g/dl (3.4-5.0); BILIRUBIN,TOTAL 0.6 mg/dL (0.2-1); BLOOD UREA NITROGEN 21.8 mg/dL (7-18); CALCIUM 8.6 mg/dL (8.5-10.1); CREATININE 1.2 mg/dL (0.55-1.3)
[2019-11-03] MEDS ORDERED: ACETAMINOPHEN 325 MG TABLET (FP) PO ONE (11:42)
--- NOTE | 2019-11-03 11:42 | PDOC ---
Attending Attestation - Resident Resident Name: Suhas Poole - ED Attending Attestation I have performed the following: I have examined & evaluated the patient, The case was reviewed & discussed with the resident, I agree w/resident's findings & plan - HPI HPI: 11/03/19 11:39 64 year old male, with a significant past medical history of HTN, HLD, IDDM, and CVA (residual left-sided weakness) presenting with 2 day sof cough and congestion. fell three days ago, c/o left wrist, right elbow, b/l hip pain, left ankle pain able to walk residual left sided weakness 11/03/19 12:06 - Physicial Exam PE: Physical exam: General: GCS 15 - NAD, well appearing HEENT: NCAT, PERRL, EOMI. Airway intact. No battles sign or raccoon eyes. No e/ o ocular. Dentition intact. No e/o septal hematoma, nasal bridge stable. Neck: neck supple, no midline C spine tenderness or deformity, ROM intact. No anterior mass or crepitus, trachea midline. Resp: Lungs clear bilaterally Chest: no clavicle or chest wall tenderness or crepitus CVS: RRR, 2+ pulses throughout. Abdomen: Abdomen soft, nontender, nondistended. Back: Back nontender, no midline spinal tenderness along cervical/thoracic/ lumbar spine, FROM, no stepoffs. MSK: Pelvis stable, Extremities symmetric, no focal areas of tenderness or deformities, proximal and distally; no pain on axial loading. FROM in all extrem. Neuro: Alert, oriented appropriately. CN II-XII grossly symmetric and intact. no focal neuro deficits. Sensation and strength intact throughout. Gait normal/ stable. Skin: intact, normal color and well perfused. No seatbelt signs at neck, chest or abdomen. - Medical Decision Making 11/03/19 11:40 Vital Signs Temp Pulse Resp BP Pulse Ox 98.5 F 84 20 130/68 97 11/03/19 09:34 11/03/19 09:34 11/03/19 09:34 11/03/19 09:34 11/03/19 10:02 labs and lytes wnl. glucose normal. flu neg CXR clear, no fx, no e/o effusion/ptx or infection. xray imaging of rt elbow/Left wrist/hand/Left ankle, unremarkable. normal alignment, no acute fx. joint spaces preserved and symmetric. no dislocation ambulatory, baseline left sided weakness from prior stroke Pt to be discharged in stable condition. Patient and family made aware of clinical impression, treatment recommendations and disposition plan, return precautions discussed (including but not limited to new or persistent/worsening symptoms, pain, fevers, or signs of infection, chest pain, respiratory distress , inability to tolerate oral intake, dehydration, syncope, or neurologic changes ). Follow up with PMD and/or specialist as recommended, follow up information provided, take medications as instructed for duration of time. continue with supportive care, avoid triggers and precipitants. All questions answered to patient's satisfaction and expressed understanding and comfort with this. At the time of discharge, the patient is alert, clinically improved, tolerating po and verbalizes understanding of instructions, satisfied with the care received and felt comfortable with the plan. Patient does not suffer from an acute life- threatening medical condition at this time and is safe for outpatient follow- up. 11/03/19 11:42
--- NOTE | 2019-11-03 11:42 | PDOC ---
History of Present Illness - General Chief Complaint: Injury Stated Complaint: FALL Time Seen by Provider: 11/03/19 09:28 - History of Present Illness Initial Comments: The pt is a 64M w/ a history of CVA and residual LUE/LLE weakness who presents for evaluation of 2 days of cough and for evaluation of left wrist, right elbow , b/l hip pain, left ankle pain after falling from bed 3 days ago. Denies fevers/chills, chest pain, trouble breathing, pt has ambulated since falling, denies dysuria, hematuria, acute change in sensation. Pt has not tried taking anything for his symptoms. 11/03/19 11:37 Past History - Past Medical History Allergies/Adverse Reactions: Allergies Allergy/AdvReac Type Severity Reaction Status Date / Time No Known Allergies Allergy Verified 11/03/19 09:40 Home Medications: Ambulatory Orders Atorvastatin Ca [Lipitor] 10 mg PO HS 06/11/16 Clopidogrel Bisulfate [Plavix -] 75 mg PO DAILY 06/11/16 Gabapentin [Neurontin -] 100 mg PO DAILY 06/11/16 Aspirin [ASA -] 81 mg PO DAILY 07/14/16 Glipizide Xl [Glucotrol Xl -] 10 mg PO BID 07/14/16 Metformin HCl [Glucophage] 1,000 mg PO BID 07/14/16 Acetaminophen [Tylenol] 650 mg PO PRN 08/02/16 Pioglitazone HCl [Actos] 30 mg PO DAILY 08/02/16 Ramipril 5 mg PO DAILY 08/02/16 Empagliflozin [Jardiance] 25 mg PO DAILY 10/10/18 Magnesium Oxide [Mag-Ox -] 400 mg PO DAILY 10/10/18 Sitagliptin Phosphate [Januvia] 100 mg PO DAILY 10/10/18 Benzonatate [Tessalon Pearls -] 100 mg PO TID #21 capsule 11/03/19 Calcium Carbonate/Vitamin D3 [Calcium 500-Vit D3 200 Tablet] 1 each PO DAILY Insulin Glargine,Hum.rec.anlog [Lantus] 20 unit SQ DAILY 11/03/19 Omeprazole 20 mg PO DAILY 11/03/19 CVA: Yes (Left sided weakness) COPD: No Diabetes: Yes HTN: Yes Hypercholesterolemia: Yes Other medical history: CVA - Immunization History Immunization Up to Date: Yes - Psycho Social/Smoking Cessation Hx Smoking History: Never smoked Have you smoked in the past 12 months: No Information on smoking cessation initiated: No Hx Alcohol Use: No Drug/Substance Use Hx: No Substance Use Type: None Review of Systems - Review of Systems Able to Perform ROS?: Yes Comments:: GENERAL/CONSTITUTIONAL: No fever or chills. No weakness HEAD, EYES, EARS, NOSE AND THROAT: No change in vision. No change in hearing. No sore throat CARDIOVASCULAR: No chest pain or shortness of breath RESPIRATORY: +cough GASTROINTESTINAL: No nausea, vomiting, diarrhea or constipation GENITOURINARY: No dysuria, frequency, or change in urination MUSCULOSKELETAL: per HPI SKIN: No rash NEUROLOGIC: No headache, vertigo, loss of consciousness, or change in strength/ sensation ENDOCRINE: No increased thirst. No abnormal weight change HEMATOLOGIC/LYMPHATIC: No anemia, easy bleeding, or history of blood clots ALLERGIC/IMMUNOLOGIC: No hives or skin allergy 11/03/19 11:38 Is the patient limited Mohawk proficient: No *Physical Exam - Vital Signs Last Vital Signs Temp Pulse Resp BP Pulse Ox 98.5 F 84 20 130/68 97 11/03/19 09:34 11/03/19 09:34 11/03/19 09:34 11/03/19 09:34 11/03/19 10:02 - Physical Exam GENERAL: Awake, alert, and oriented to person/place/time, in no acute distress HEAD: No signs of trauma, normocephalic, atraumatic EYES: PERRLA, EOMI, sclera anicteric, conjunctiva clear ENT: Hearing grossly normal, nares patent, oropharynx clear without exudates. No uvular deviation. Moist mucosa LUNGS: No distress, speaks in full sentences, clear to auscultation bilaterally HEART: Regular rate and rhythm, normal S1 and S2, no murmurs appreciated, peripheral pulses normal and equal bilaterally ABDOMEN: Soft, nontender, normoactive bowel sounds. No guarding, no rebound EXTREMITIES: moves all extremities independently, LUE/LLE weak relative to RUE/ RLE, no bony crepitus underlying R elbow or L wrist NEUROLOGICAL: Cranial nerves II through XII grossly intact. Normal speech, normal gait, no focal sensorimotor deficits _ SKIN: abrasion to right elbow and left wrist 11/03/19 11:38 ED Treatment Course - LABORATORY CBC & Chemistry Diagram: 11/03/19 09:50 11/03/19 09:50 - ADDITIONAL ORDERS Additional order review: Laboratory Results 11/03/19 11/03/19 09:50 09:50 Sodium 134 L Potassium 4.0 Chloride 101 Carbon Dioxide 26 Anion Gap 7 L BUN 21.8 H Creatinine 1.2 Est GFR (CKD-EPI)AfAm 72.59 Est GFR (CKD-EPI)NonAf 62.63 Random Glucose 320 H Calcium 8.6 Total Bilirubin 0.6 AST 28 ALT 33 Alkaline Phosphatase 31 L Troponin I < 0.02 Total Protein 7.0 Albumin 3.4 11/03/19 09:50 RBC 4.90 MCV 87.5 MCHC 33.4 RDW 13.5 MPV 8.2 Neutrophils % 74.0 Lymphocytes % 13.7 D Monocytes % 9.6 Eosinophils % 2.0 Basophils % 0.7 - RADIOLOGY Radiology Studies Ordered: Category Date Time Status ANKLE & FOOT-LEFT* [RAD] Stat Radiology 11/03/19 09:31 Taken CHEST PA & LAT [RAD] Stat Radiology 11/03/19 09:30 Taken ELBOW-RIGHT [RAD] Stat Radiology 11/03/19 09:31 Taken WRIST-LEFT [RAD] Stat Radiology 11/03/19 09:31 Taken Medical Decision Making - Medical Decision Making The pt is a 64M w/ a history of CVA and residual LUE/LLE weakness who presents for evaluation of 2 days of cough and for evaluation of left wrist, right elbow , b/l hip pain, left ankle pain after falling from bed 3 days ago. ED Course Eval for PNA and joint injury Labs sent CXR Labs and imaging unremarkable Influenza neg Symptoms likely 2/2 viral syndrome Rx for tessalon perles sent to pharmacy Plan for D/C w/ PCP f/u Discharge instructions and return precautions given Patient in agreement and verbalized understanding Dispo: Home 11/03/19 12:29 Discharge - Discharge Information Problems reviewed: Yes Clinical Impression/Diagnosis: Cough Wrist pain Qualifiers: Laterality: left Qualified Code(s): M25.532 - Pain in left wrist Elbow pain Qualifiers: Laterality: right Qualified Code(s): M25.521 - Pain in right elbow Condition: Stable Disposition: HOME - Admission No - Additional Discharge Information Prescriptions: Benzonatate [Tessalon Pearls -] 100 mg PO TID #21 capsule - Follow up/Referral Referrals: ON STAFF,NOT [Primary Care Provider] - - Patient Discharge Instructions Patient Printed Discharge Instructions: DI for Cough -- Adult, DI for Musculoskeletal Pain Additional Instructions: You were seen in the Emergency Department for cough and joint pain after a fall. Your imaging was negative for fractures. Your xray was negative for evidence of pneumonia. A prescription for tessalon perles was sent to your pharmacy, take as directed for cough. Review the handouts provided at discharge. Follow up with your primary care provider within a week. For pain you may take Tylenol 650mg every 6 hours and Ibuprofen 600mg every 6-8 hours, alternating them each time. Return to the Emergency Department if you develop fevers, chest pain, trouble breathing, worsening pain, change in sensation, worsening symptoms, or any new/ concerning symptoms. - Post Discharge Activity
[2019-11-03] MEDS ORDERED: ACETAMINOPHEN 325 MG TABLET (FP) ONE (11:51)
[2019-11-03 11:58] VITALS: BP 129/73; PULSE 81; TEMP 97.8
--- NOTE | 2019-11-04 11:32 | EKG ---
Test Reason : Blood Pressure : / mmHG Vent. Rate : 084 BPM Atrial Rate : 084 BPM P-R Int : 160 ms QRS Dur : 100 ms QT Int : 382 ms P-R-T Axes : 053 -02 029 degrees QTc Int : 451 ms NORMAL SINUS RHYTHM NORMAL ECG WHEN COMPARED WITH ECG OF 05-APR-2019 01:54, T WAVE VARIATION Confirmed by HELEN MEYERS MD ([id number]) on 11/04/2019 11:32:33 AM Referred By: Confirmed By:HELEN MEYERS MD
== END 2019-11-03 12:14 | disposition home or self-care (01) ==
LOC: JER 08:55
DX: B34.9 Viral infection, unspecified (principal); R05 Cough; M25.532 Pain in left wrist; M25.521 Pain in right elbow; M25.552 Pain in left hip; M25.551 Pain in right hip; W06.XXXA Fall from bed, initial encounter; Y93.89 Activity, other specified; Y92.032 Bedroom in apartment as the place of occurrence of the external cause; Y99.8 Other external cause status; I10 Essential (primary) hypertension; E78.00 Pure hypercholesterolemia, unspecified; E11.9 Type 2 diabetes mellitus without complications; Z79.4 Long term (current) use of insulin; I69.854 Hemiplegia and hemiparesis following other cerebrovascular disease affecting left non-dominant side
CPT/HCPCS: 36415; 71046-TC-FY; 73070-TC-RT-FY; 73110-TC-LT-FY; 73523-TC-FY; 73610-TC-LT-FY; 73630-TC-LT; 80053; 84484; 85025; 87804; 93005; 93010; 99284-25

== ENCOUNTER 2020-05-09 08:04 | Emergency (ER) | payer OTHER ==
[2020-05-09 08:16] VITALS: BP 159/69; PULSE 81; TEMP 98.5; BMI 26.4
--- NOTE | 2020-05-09 09:06 | PDOC ---
History of Present Illness - General Chief Complaint: Pain Stated Complaint: PAIN Time Seen by Provider: 05/09/20 08:29 Past History - Medical History Allergies/Adverse Reactions: Allergies Allergy/AdvReac Type Severity Reaction Status Date / Time No Known Allergies Allergy Verified 11/03/19 09:40 Home Medications: Ambulatory Orders Atorvastatin Ca [Lipitor] 10 mg PO HS 06/11/16 Clopidogrel Bisulfate [Plavix -] 75 mg PO DAILY 06/11/16 Gabapentin [Neurontin -] 100 mg PO DAILY 06/11/16 Aspirin [ASA -] 81 mg PO DAILY 07/14/16 Glipizide Xl [Glucotrol Xl -] 10 mg PO BID 07/14/16 Metformin HCl [Glucophage] 1,000 mg PO BID 07/14/16 Acetaminophen [Tylenol] 650 mg PO PRN 08/02/16 Pioglitazone HCl [Actos] 30 mg PO DAILY 08/02/16 Ramipril 5 mg PO DAILY 08/02/16 Empagliflozin [Jardiance] 25 mg PO DAILY 10/10/18 Magnesium Oxide [Mag-Ox -] 400 mg PO DAILY 10/10/18 Sitagliptin Phosphate [Januvia] 100 mg PO DAILY 10/10/18 Benzonatate [Tessalon Pearls -] 100 mg PO TID #21 capsule 11/03/19 Calcium Carbonate/Vitamin D3 [Calcium 500-Vit D3 200 Tablet] 1 each PO DAILY 11/03/19 Insulin Glargine,Hum.rec.anlog [Lantus] 20 unit SQ DAILY 11/03/19 Omeprazole 20 mg PO DAILY 11/03/19 CVA: Yes (Left sided weakness) COPD: No Diabetes: Yes HTN: Yes Hypercholesterolemia: Yes - Immunization History Immunization Up to Date: Yes - Psycho-Social/Smoking History Smoking History: Unknown if ever smoked Have you smoked in the past 12 months: No - Substance Abuse Hx (Audit-C & DAST Scrn) How often the patient has a drink containing alcohol: Never Score: In Men: 4 or > Positive; In Women: 3 or > Positive: 0 Screen Result (Pos requires Nsg. Audit-10AR): Negative In the last yr the pt used illegal drug/Rx for NonMed reason: No Score: Yes response is considered Positive: 0 Screen Result (Positive result requires Nsg. DAST-10): Negative *Physical Exam - Vital Signs Last Vital Signs Temp Pulse Resp BP Pulse Ox 98.5 F 81 20 159/69 96 05/09/20 08:12 05/09/20 08:12 05/09/20 08:12 05/09/20 08:12 05/09/20 08:12 Discharge - Discharge Information Problems reviewed: Yes Clinical Impression/Diagnosis: Pain, dental Condition: Stable Disposition: HOME - Admission No - Follow up/Referral - Patient Discharge Instructions Patient Printed Discharge Instructions: DI for Dental Pain Additional Instructions: You were seen in the ER for dental pain. We applied a medicine that helps with the pain - it should last for several hours. It is very important that you see a dentist today. [facility] at [address] [place] [address], [id number] is open today until 5:00PM. They accept insurance. Please go immediately after leaving here as the tooth may need to be removed. Dental urgent care open until 5pm today Phone number: [phone] [facility] [place], [address] --- dangsin-racheal bnkt-[id number] chigwa tongjeung-eulo moggyeogdoeeossseubnida. ulineun tongjeung-e doum-idoeneun yag-eul jeog-yonghaessneunde myeoch sigan dong-an jisogdoeeoyahabnida. oneul chigwa uisaleul mannaneun geos-i maeu espinoza- yohabnida. nyuyog ju seu kaseu deil [phone] [facility] [facility] ([facility]) 10[address] chigwa eung-geub chilyoneun oneul ohu 5 sikka ji un-yeongdoebnida. geudeul-rachael boheom-e dong-uihabnida. chialeul jegeohaeya mariely sudo iss-eumeulo yeogileul tteonan hu balo gasibsio. chigwa eung-geub chilyoneun oneul ohu 5 sikka ji edward-eul yeobni da Phone number: [phone] [place] [address], [address] - Post Discharge Activity
[2020-05-09] MEDS ORDERED: BUPIVACAINE HCL/PF 0.5% (5 MG/ML) 30 ML VIAL IJ ONE ×2 (09:10→09:28)
--- NOTE | 2020-05-09 09:21 | PDOC ---
Documentation entered by Lisset Wagner SCRIBE, acting as scribe for Lupe Montemayor MD. Lupe Montemayor MD: This documentation has been prepared by the scribe, Lisset Wagner SCRIBE, under my direction and personally reviewed by me in its entirety. I confirm that the documentation accurately reflects all work, treatment, procedures, and medical decision making performed by me. Attending Attestation - Resident Resident Name: ArtemiorakeshCarlin - ED Attending Attestation I have performed the following: I have examined & evaluated the patient, The case was reviewed & discussed with the resident, I agree w/resident's findings & plan, Exceptions are as noted - HPI HPI: 05/09/20 09:13 Patient is a 64 year old male with a significant past medical history of HTN, HLD, IDDM, and CVA (residual left-sided weakness) who presents to the ED with dental pain for the past 3 days. He has history of multiple cavities, multiple missing teeth. Allergies: NKDA - Physicial Exam PE: GENERAL: Awake, alert, and fully oriented, in no acute distress HEAD: No signs of trauma EYES: PERRLA, EOMI, sclera anicteric, conjunctiva clear ENT: Auricles normal inspection, hearing grossly normal, nares patent, oropharynx clear without exudates. Moist mucosa. No facial swelling. DENTAL: Multiple missing teeth. +Dental caries to #28 with tenderness to percussion. +Tenderness to the gingiva. No fluctuant areas. NECK: Normal ROM, supple, no lymphadenopathy, JVD, or masses - Medical Decision Making Local infiltrate done with 5% bupivacaine. Pt tolerated well. Stable for DC to dental urgent care. I contacted [facility], they are open until 5pm today. Discharge - Discharge Information Problems reviewed: Yes Clinical Impression/Diagnosis: Pain, dental Dental implant pain Qualifiers: Encounter type: initial encounter Qualified Code(s): T85.848A - Pain due to other internal prosthetic devices, implants and grafts, initial encounter Condition: Stable Disposition: HOME - Follow up/Referral - Patient Discharge Instructions Patient Printed Discharge Instructions: DI for Dental Pain Additional Instructions: You were seen in the ER for dental pain. We applied a medicine that helps with the pain - it should last for several hours. It is very important that you see a dentist today. [facility] at [address] [place], [address] is open today until 5:00PM. They accept insurance. Please go immediately after leaving here as the tooth may need to be removed. Dental urgent care open until 5pm today Phone number: [phone] [facility] [place], [address] --- dangsin-rachael dtbb-mcmlnqi-ezxv chigwa tongjeung-eulo moggyeogdoeeossseubnida. ulineun tongjeung-e doum-idoeneun yag-eul jeog-yonghaessneunde myeoch sigan dong-an jisogdoeeoyahabnida. oneul chigwa uisaleul mannaneun geos-i maeu espinoza- yohabnida. nyuyog ju seu kaseu deil [phone] [facility] ([facility]) 1088 chigwa eung-geub chilyoneun oneul ohu 5 sikka ji un-yeongdoebnida. geudeul-rachael boheom-e dong-uihabnida. chialeul jegeohaeya mariely sudo iss-eumeulo yeogileul tteonan hu balo gasibsio. chigwa eung-geub chilyoneun oneul ohu 5 sikka ji edward-eul yeobni da Phone number: [phone] [place] [address], [address] - Post Discharge Activity
== END 2020-05-09 11:31 | disposition home or self-care (01) ==
LOC: JER 08:04
DX: K08.89 Other specified disorders of teeth and supporting structures (principal)
CPT/HCPCS: 99283-25